=== PATIENT | female | born 1940 | race Caucasian/White ===

== ENCOUNTER 2016-07-26 15:36 | Inpatient (IN) | payer OTHER ==
[2016-07-26] MEDS ORDERED: ONDANSETRON HCL 4 MG/2 ML VIAL IV ONE (16:04)
[2016-07-26] MEDS ORDERED: NS 2,000 ML IV ONE (16:04)
[2016-07-26] MEDS ORDERED: ACETAMINOPHEN 325 MG/TAB TABLET PO ONE (16:13)
[2016-07-26 16:18] LABS: LEUKOCYTES/URINE NEG (NEGATIVE); NITRITE/URINE NEG (NEGATIVE); URINE OCCULT BLOOD NEG (NEG/TRACE)
--- NOTE | 2016-07-26 16:21 | EDPRACDOC ---
- History of Present Illness HPI: MD NOTE SEEN AND EXAMINED; OLD RECORDS REVIEWED. LABS REVIEWED. WILL CONTACT HOSP FOR ADMISSION <Fracisco Hernández - Last Filed: 07/26/16 18:50> - General Information Information Source: Patient, Family Mode Of Arrival: Car - History of Present Illness Onset: 4 days HPI: PT STATES SHE WAS JUST RECENTLY ADMITTED TO THIS FACILITY DUE TO ABDOMINAL PAIN , NAUSEA, VOMITING AND DIARRHEA. STATES SHE HAD ABOUT ONE GOOD DAY AT HOME AND THEN BEGAN HAVING ALL OF THE SAME ISSUES AGAIN. PT STATES SHE IS HAVING MULTIPLE EPISODES OF DIARRHEA WHICH IS DESCRIBED MUCOUS. Symptoms Started: Reports: Gradually Symptoms Description: Constant Weakness: Bilateral: Generalized Symptoms: Reports: Weak Symptom Severity: Reports: Unable to performs ADL's Associated signs and symptoms:: Reports: Diarrhea, Nausea, Vomiting <Allison Chacon - Last Filed: 07/26/16 19:11> - General Information Chief Complaint: Generalized Weakness Stated Complaint: N/V Time Seen by Provider: 07/26/16 15:56 Home Medications: Home Medications Aspirin 325 mg PO DAILY 11/12/15 Buspirone HCl [Buspar] 10 mg PO BID 11/12/15 Folic Acid 1 mg PO DAILY 11/12/15 Trimethoprim 100 mg PO DAILY 11/12/15 Baclofen 5 mg PO TID PRN 07/16/16 CYANOCOBALAMIN (Vitamin B-12) [Vitamin B-12 (cyanocobalamin)] 1,000 mcg IM QMONTH 07/16/16 Docusate Sodium [Colace] 100 mg PO BID 07/16/16 Fluticasone Propionate [Flonase] 1 spray DIANA DAILY PRN 07/16/16 Hydrocodone Bit/Acetaminophen [[place] 5-325 Tablet] 1 tab PO Q6H PRN MDD 3000MG OF TYLENOL 07/16/16 Loperamide HCl [Loperamide] 2 mg PO Q4H PRN 07/16/16 Mirtazapine [Remeron] 7.5 mg PO HS 07/16/16 Multivitamin [Multiple Vitamins] 1 tab PO DAILY 07/16/16 Ondansetron [Zofran Odt] 4 - 8 mg PO BID PRN 07/16/16 Ranitidine [Zantac] 150 mg PO DAILY 07/16/16 Metoprolol Succinate (XL) [Toprol Xl] 100 mg PO DAILY #90 tablet 07/21/16 Probiotic Blend [Ivonne Q] 1 tab PO BIDLS #60 tablet 07/21/16 Azithromycin [Zithromax] 250 mg PO DIR 07/26/16 Cholecalciferol (Vitamin D3) [Vitamin D] 50,000 unit PO QMONTH 07/26/16 Losartan Potassium [Cozaar] 50 mg PO DAILY 07/26/16 Promethazine HCl [Phenergan] 12.5 mg PO Q6-8H PRN 07/26/16 See Comments 0 mg PO .SEE COMMENTS 07/26/16 Allergies/Adverse Reactions: Allergies Allergy/AdvReac Type Severity Reaction Status Date / Time diphenhydramine HCl Allergy Intermediate Unknown/See Verified 07/16/16 05:23 [From Benadryl] Comments pregabalin [From Lyrica] Allergy Mild Unknown/See Verified 07/16/16 05:23 Comments propoxyphene napsylate Allergy Mild Unknown/See Verified 07/16/16 05:23 [From Darvocet-N 100] Comments atorvastatin Allergy Unknown Verified 07/16/16 13:26 ED Past Medical History - History Reviewed Yes Nurses notes reviewed and agree except as marked - Patient Medical History Neurological History: Reports: Cerebrovascular Accident (R sided hemiparesis/ plegia May 2015) Cardiac History: Reports: Hypertension Respiratory History: Reports: Asthma (long time ago r/t allergies) GI/ History: Reports: Urinary Tract Infection (chronic), Ulcer (PUD), Diverticulosis Musculoskeletal History: Reports: Arthritis (all over) Psychological History: Reports: Anxiety. Denies: Depression, Substance Use Disorder Surgical History: Reports: Cholecystectomy, Hysterectomy - Family Medical History Reports: Cardiac Disorders (mother) - Social Medical History Smoking Status: Former smoker Social History: Denies: Substance Use Disorder <Allison Chacon W - Last Filed: 07/26/16 19:11> EDM Review of Systems - Review of Systems ROS Negative Except as Marked: Yes All systems reviewed and were negative except as marked <Allison Chacon W - Last Filed: 07/26/16 19:11> - Physical Exam Last recorded Vital Signs: Last Vital Signs Temp 101.2 F H 07/26/16 17:57 Pulse 112 07/26/16 17:57 Resp 18 07/26/16 17:57 BP 122/56 L 07/26/16 17:57 Pulse Ox 95 07/26/16 17:57 Oxygen Pulse Oxygen Saturation 95 O2 Device Room Air Oxygen Flow Rate Fraction of Inspired Oxygen ( FIO2) <Fracisco Hernández - Last Filed: 07/26/16 18:50> - Physical Exam Constitutional: Alert Oriented to: Time, Person, Place Last recorded Vital Signs: Last Vital Signs Temp 103.3 F H 07/26/16 15:40 Pulse 120 H 07/26/16 15:40 Resp 20 07/26/16 15:40 BP 119/64 07/26/16 15:40 Pulse Ox 96 07/26/16 15:40 Oxygen Pulse Oxygen Saturation 96 O2 Device Room Air Oxygen Flow Rate Fraction of Inspired Oxygen ( FIO2) - HEENT Head: Normal ( normocephalic) Eye Exam: Pale Conjunctiva Oropharynx: Membranes Dry Tympanic Membrane: Normal Nose: No Symptoms Reported (septum midline) Neck: Normal (FROM, trachea at midline) - Respiratory/Cardiovascular Respiratory: Normal - CTA Cardiovascular: Tachycardia - GI Auscultation: Normal (NABS) Palpation: Normal (Soft,No rebound or guarding, non distended) Tenderness: Diffuse, Moderate Murillo's Sign: Negative Rectal Exam: Deferred - Musculoskeletal Back: Normal (Non-Tender) Extremities: Normal (Normal tone, Pulses 2+ No cyanosis or edema, FROM) - Integumentary Skin: Normal, Warm, Dry Lymphatics: Normal (no adenopathy) - Neurologic Memory Impaired: Normal Motor Function: Normal (Normal tone, Pulses 2+ No cyanosis or edema, FROM) Cranial Nerve: Normal (CN II-X11 intact sensation, strength 5/5) Cerebellar: Normal Mood Description: Normal Perception: Normal <Allison Chacon - Last Filed: 07/26/16 19:11> NIH Stroke Scale Initial Evaluation Level of Consciousness: Alert LOC- Question: Answers Both Correctly LOC Commands: Both Task Correctly Best Gaze: Normal Visual: No Visual Loss Facial Palsy: Normal Movement Motor Arm LEFT: No Drift Motor Arm RIGHT: No Drift Motor Leg LEFT: No Drift Motor Leg RIGHT: No Drift Limb Ataxia: Absent Sensory: Normal Best Language: No Aphasia Dysarthria: Normal Extinction and Inattention: No Abnormality (Neglect) Score: 0out of42 <Allison Chacon - Last Filed: 07/26/16 19:11> - Neurologic Orientation: Time, Person, Place Speech: Fluent, Clear Coginitive: Normal, Follows Commands Affect: Normal, Calm Thought: Coherent Perception: Normal <Allison Chacon W - Last Filed: 07/26/16 19:11> - Results 07/26/16 15:53 07/26/16 15:53 WBC 19.0 xk/uL (3.8-10.8) H 07/26/16 15:53 RBC 3.91 xM/uL (4.20-5.40) L 07/26/16 15:53 Hgb 11.7 g/dL (12.0-16.0) L 07/26/16 15:53 Hct 35.2 % (36-47) L 07/26/16 15:53 MCV 90 fL (81-99) 07/26/16 15:53 MCH 30.0 pg (27-32) 07/26/16 15:53 MCHC 33.3 g/dl (33-36) 07/26/16 15:53 RDW 14.0 % (11.5-14.5) 07/26/16 15:53 Plt Count 540 xk/uL (130-400) H 07/26/16 15:53 MPV 8.0 fL (7.4-10.4) 07/26/16 15:53 Neut % (Auto) Cancelled 07/26/16 15:53 Lymph % (Auto) Cancelled 07/26/16 15:53 [place] % (Auto) Cancelled 07/26/16 15:53 Eos % (Auto) Cancelled 07/26/16 15:53 Baso % (Auto) Cancelled 07/26/16 15:53 Absolute Neuts (auto) Cancelled 07/26/16 15:53 Absolute Lymphs (auto) Cancelled 07/26/16 15:53 Seg Neuts % (Manual) 64 % (45-76) 07/26/16 15:53 Band Neutrophils % 7 % (0-5) H 07/26/16 15:53 Lymphocytes % (Manual) 15 % (17-44) L 07/26/16 15:53 Monocytes % (Manual) 13 % (0-10) H 07/26/16 15:53 Myelocytes % 1 % (0) H 07/26/16 15:53 Absolute Neutrophils 13.49 xk/uL (1.7-8.2) H 07/26/16 15:53 Absolute Lymphocytes 2.85 xk/uL (0.65-4.75) 07/26/16 15:53 Toxic Granulation 1+ 07/26/16 15:53 Platelet Estimate Inc (NORMAL) 07/26/16 15:53 RBC Morphology Norm 07/26/16 15:53 PT 11.2 SEC (9.2-11.2) 07/26/16 15:53 INR 1.1 07/26/16 15:53 APTT 26.0 SEC (22-35) 07/26/16 15:53 Puncture Site Right radial 07/26/16 17:00 pH 7.460 pH UNITS (7.35-7.45) H 07/26/16 17:00 pCO2 27.0 mmHg (35-45) L 07/26/16 17:00 pO2 83.0 mmHg (80-100) 07/26/16 17:00 HCO3 19.2 MMOL/L (22-26) L 07/26/16 17:00 Total CO2 20.0 MMOL/L (23-27) L 07/26/16 17:00 Base Excess -3.2 (+/- 2) L 07/26/16 17:00 FiO2 % .21 07/26/16 17:00 Specimen Drawn By Sy 07/26/16 17:00 Sodium 139 mEq/L (137-146) 07/26/16 15:53 Potassium 3.0 mEq/L (3.5-5.1) L 07/26/16 15:53 Chloride 105 mEq/L (98-107) 07/26/16 15:53 Carbon Dioxide 20 mMOL/L (22-33) L 07/26/16 15:53 Anion Gap 17 mEq/L (8-16) H 07/26/16 15:53 BUN 31 MG/DL (7-17) H 07/26/16 15:53 Creatinine 1.10 MG/DL (0.52-1.04) H 07/26/16 15:53 Estimated GFR (MDRD) 48 mL/min (>=60) L 07/26/16 15:53 Glucose 107 MG/DL (70-99) H 07/26/16 15:53 Calculated Osmolality 275 MOs/Kg (270-290) 07/26/16 15:53 Lactic Acid 1.7 mEq/L (0.7-2.1) 07/26/16 15:53 Calcium 8.4 MG/DL (8.4-10.2) 07/26/16 15:53 Corrected Calcium 8.9 MG/DL (8.4-10.2) 07/26/16 15:53 Total Bilirubin 0.4 MG/DL (0.2-1.3) 07/26/16 15:53 AST 35 IU/L (14-36) 07/26/16 15:53 ALT 38 IU/L (9-52) 07/26/16 15:53 Alkaline Phosphatase 146 IU/L (55-165) 07/26/16 15:53 Creatine Kinase 20 IU/L (30-134) L 07/26/16 15:53 Troponin I 0.01 ng/mL (<.04) 07/26/16 15:53 Total Protein 7.0 G/DL (6.3-8.2) 07/26/16 15:53 Albumin 3.5 G/DL (3.5-5.0) 07/26/16 15:53 Lipase 148 U/L (23-300) 07/26/16 15:53 Urine Color Yellow 07/26/16 15:50 Urine Clarity Clear 07/26/16 15:50 Urine pH 6.0 (5.0-8.0) 07/26/16 15:50 Ur Specific [place] 1.015 (1.003-1.035) 07/26/16 15:50 Urine Protein 1+ (NEG/TRACE) H 07/26/16 15:50 Urine Glucose (UA) Neg (NEGATIVE) 07/26/16 15:50 Urine Ketones Neg (NEGATIVE) 07/26/16 15:50 Urine Occult Blood Neg (NEG/TRACE) 07/26/16 15:50 Urine Nitrite Neg (NEGATIVE) 07/26/16 15:50 Urine Bilirubin Neg (NEGATIVE) 07/26/16 15:50 Urine Urobilinogen <2.0 MG/DL (0-1) 07/26/16 15:50 Ur Leukocyte Esterase Neg (NEGATIVE) 07/26/16 15:50 Urine RBC 2-5 (0-5) 07/26/16 15:50 Urine WBC 2-5 (0-5) 07/26/16 15:50 Ur Epithelial Cells Occ 07/26/16 15:50 Urine Bacteria Few (NEG/FEW) 07/26/16 15:50 Urine Mucus Occ (NEG/OCC) 07/26/16 15:50 Urine Yeast Mod (NONE) H 07/26/16 15:50 Lab Results 07/26/16 07/26/16 07/26/16 17:00 15:53 15:53 WBC 19.0 H RBC 3.91 L Hgb 11.7 L Hct 35.2 L MCV 90 MCH 30.0 MCHC 33.3 RDW 14.0 Plt Count 540 H MPV 8.0 Neut % (Auto) Cancelled Lymph % (Auto) Cancelled [place] % (Auto) Cancelled Eos % (Auto) Cancelled Baso % (Auto) Cancelled Absolute Neuts (auto) Cancelled Absolute Lymphs (auto) Cancelled Seg Neuts % (Manual) 64 Band Neutrophils % 7 H Lymphocytes % (Manual) 15 L Monocytes % (Manual) 13 H Myelocytes % 1 H Absolute Neutrophils 13.49 H Absolute Lymphocytes 2.85 Toxic Granulation 1+ Platelet Estimate Inc RBC Morphology Norm PT 11.2 INR 1.1 APTT 26.0 Puncture Site Right radial pH 7.460 H pCO2 27.0 L pO2 83.0 HCO3 19.2 L Total CO2 20.0 L Base Excess -3.2 L FiO2 % .21 Specimen Drawn By Sy Sodium Potassium Chloride Carbon Dioxide Anion Gap BUN Creatinine Estimated GFR (MDRD) Glucose Calculated Osmolality Lactic Acid Calcium Corrected Calcium Total Bilirubin AST ALT Alkaline Phosphatase Creatine Kinase Troponin I Total Protein Albumin Lipase Urine Color Urine Clarity Urine pH Ur Specific [place] Urine Protein Urine Glucose (UA) Urine Ketones Urine Occult Blood Urine Nitrite Urine Bilirubin Urine Urobilinogen Ur Leukocyte Esterase Urine RBC Urine WBC Ur Epithelial Cells Urine Bacteria Urine Mucus Urine Yeast 07/26/16 07/26/16 07/26/16 15:53 15:53 15:50 WBC RBC Hgb Hct MCV MCH MCHC RDW Plt Count MPV Neut % (Auto) Lymph % (Auto) [place] % (Auto) Eos % (Auto) Baso % (Auto) Absolute Neuts (auto) Absolute Lymphs (auto) Seg Neuts % (Manual) Band Neutrophils % Lymphocytes % (Manual) Monocytes % (Manual) Myelocytes % Absolute Neutrophils Absolute Lymphocytes Toxic Granulation Platelet Estimate RBC Morphology PT INR APTT Puncture Site pH pCO2 pO2 HCO3 Total CO2 Base Excess FiO2 % Specimen Drawn By Sodium 139 Potassium 3.0 L Chloride 105 Carbon Dioxide 20 L Anion Gap 17 H BUN 31 H Creatinine 1.10 H Estimated GFR (MDRD) 48 L Glucose 107 H Calculated Osmolality 275 Lactic Acid 1.7 Calcium 8.4 Corrected Calcium 8.9 Total Bilirubin 0.4 AST 35 ALT 38 Alkaline Phosphatase 146 Creatine Kinase 20 L Troponin I 0.01 Total Protein 7.0 Albumin 3.5 Lipase 148 Urine Color Yellow Urine Clarity Clear Urine pH 6.0 Ur Specific [place] 1.015 Urine Protein 1+ H Urine Glucose (UA) Neg Urine Ketones Neg Urine Occult Blood Neg Urine Nitrite Neg Urine Bilirubin Neg Urine Urobilinogen <2.0 Ur Leukocyte Esterase Neg Urine RBC 2-5 Urine WBC 2-5 Ur Epithelial Cells Occ Urine Bacteria Few Urine Mucus Occ Urine Yeast Mod H <Fracisco Hernández - Last Filed: 07/26/16 18:50> - Differential Diagnosis Dehydration, Electrolyte disorder, Other - Results 07/26/16 15:53 07/26/16 15:53 - EKG EKG #1 EKG Time: 16:16 -: Yes EKG interpreted by me Rate: bpm: 115 [place]: Normal Rhythm: ST Block: None Hypertrophy: None ST: Nonsp <Allison Chacon - Last Filed: 07/26/16 19:11> Decision to Admit Time: 19:10 (IKRAM) Decision to admit date: 07/26/16 Decision to admit: from ED <Fracisco Hernández - Last Filed: 07/26/16 18:50> - Departure Disposition: Admit IP To This Hospital Education/Counseling Given To: Patient Education/Counseling Given Regarding: Diagnosis, Treatment, Prognosis, Follow Up <Allison Chacon - Last Filed: 07/26/16 19:11> - Departure Condition: Stable Final Diagnosis: Dehydration, PRE RENAL AZOTEMIA Nausea & vomiting Qualifiers: Vomiting type: unspecified Vomiting Intractability: unspecified Qualified Code( s): R11.2 - Nausea with vomiting, unspecified Diarrhea Qualifiers: Diarrhea type: unspecified type Qualified Code(s): R19.7 - Diarrhea, unspecified Instructions: Weakness (General), Acute Nausea and Vomiting (ED), Acute Diarrhea (ED) Referrals: Antonia Ramirez, ACCESS LIAISON [Primary Care Provider] - One Week
[2016-07-26 16:30] LABS: PT-INR 1.1
[2016-07-26 16:40] LABS: CALC CORRECTED 8.9 MG/DL (8.4-10.2); CALCIUM 8.4 MG/DL (8.4-10.2); CREATININE 1.1 MG/DL (0.52-1.04)
[2016-07-26] MEDS ORDERED: Pharmacy Review for Metformin - IV Contrast Given SCH (17:00)
[2016-07-26] MEDS: KCL 20 mEq/100 ml Premix Run 20 MEQ/100 ML RTU IV SCH ×3 (17:03→19:26)
[2016-07-26 17:07] LABS: ABG Draw Site Right Radial; ALLEN'S TEST PASS; BEb -3.2 (+/- 2)
[2016-07-26 17:08] LABS: SEG NEUTROPHIL 64 % (45-76); TOTAL CELL COUNT 100
--- NOTE | 2016-07-26 17:10 | DIRPT ---
CLINICAL DATA: Sepsis. Stroke 16 months ago. EXAM: PORTABLE CHEST 1 VIEW COMPARISON: 05/01/2013; report from 03/07/2015 FINDINGS: Atherosclerotic aortic arch with tortuosity of the thoracic aorta. Clips project in the vicinity of the distal esophagus. Mild dextroconvex thoracic scoliosis. Heart size within normal limits for projection. The lungs appear clear. IMPRESSION: 1. No airspace opacity to suggest pneumonia. 2. Atherosclerotic aortic arch. Electronically Signed By: Oswaldo Moreland M.D. On: 07/26/2016 17:07
[2016-07-26] MEDS ORDERED: IBUPROFEN 800 MG TAB PO ONE (18:01)
[2016-07-26] MEDS ORDERED: HYDROmorphone 1 MG INJECTION IV ONE (18:06)
[2016-07-26] MEDS ORDERED: HYDROmorphone 1 MG INJECTION ONE (18:07)
--- NOTE | 2016-07-26 18:35 | DIRPT ---
CLINICAL DATA: Acute middle abdominal pain. Nausea, vomiting, diarrhea. EXAM: CT ABDOMEN AND PELVIS WITH CONTRAST TECHNIQUE: Multidetector CT imaging of the abdomen and pelvis was performed using the standard protocol following bolus administration of intravenous contrast. CONTRAST: 80 mL of Isovue 370 intravenously. COMPARISON: None. FINDINGS: Severe multilevel degenerative disc disease is noted in the lower lumbar spine. Visualized lung bases are unremarkable. Stable mild intrahepatic biliary dilatation is noted most consistent with patient's post cholecystectomy status. The pancreas and spleen appear normal. Adrenal glands and kidneys are unremarkable. No hydronephrosis or renal obstruction is noted. There is no evidence of bowel obstruction. Wall thickening of the sigmoid colon and rectum is noted concerning for infectious or inflammatory colitis. Mild sigmoid diverticulosis is noted. No abnormal fluid collection is noted. Atherosclerosis of abdominal aorta is noted without aneurysm formation. No significant adenopathy is noted. Urinary bladder appears normal. Patient is status post hysterectomy. Ovaries are not well visualized. IMPRESSION: Wall thickening of the sigmoid colon and rectum is noted concerning for infectious or inflammatory colitis. Mild sigmoid diverticulosis is noted. Atherosclerosis of abdominal aorta is noted without aneurysm formation. Electronically Signed By: Edwar Vance Jr, M.D. On: 07/26/2016 18:32
[2016-07-26] MEDS ORDERED: Levofloxacin 750 mg/150 ml D5W 750 MG/150 ML RTU IV ONE (18:52)
[2016-07-26] MEDS ORDERED: ONDANSETRON HCL 4 MG/2 ML VIAL IV PRN (19:29)
[2016-07-26] MEDS ORDERED: ACETAMINOPHEN 325 MG/TAB TABLET PO PRN (19:29)
[2016-07-26] MEDS ORDERED: BACLOFEN 10 MG TAB PO PRN (19:30)
[2016-07-26] MEDS ORDERED: LOPERAMIDE 2 MG CAP PO PRN (19:30)
[2016-07-26] MEDS ORDERED: FLUTICASONE PROPIONATE 16 GM BOT NAS PRN (19:30)
[2016-07-26] MEDS ORDERED: Albuterol/Ipratropium Neb 3 ML NEB NEB PRN (19:31)
[2016-07-26] MEDS ORDERED: POTASSIUM CHLORIDE 20 MEQ/15 ML ORAL SOLN PO ONE (19:58)
[2016-07-26] MEDS ORDERED: CYANOCOBALAMIN 1000 MCG/ML VIAL IM SCH (20:00)
--- NOTE | 2016-07-26 20:00 | HISTPHYS ---
- Chief Complaint Nausea, vomiting, diarrhea - History of Present Illness 75-year-old female with recent hospitalization for diverticulitis and pancreatitis who is being readmitted to the hospital tonight due to recurrent nausea, vomiting and diarrhea. She went home on the , had a couple of good days, but her nausea and vomiting returned. She also been having watery diarrhea without blood. She completed a course of antibiotics, and was not discharged home on any antibiotics. She says that she was still having diarrhea when she was discharged home will was slightly nauseated but not vomiting. She was tolerating a liquid diet at the time of discharge from the hospital last time. In any case, she is now not tolerating any p.o., though her daughter later states that she ate a piece of toast and some eggs this morning and was able to keep it down without vomiting. Otherwise, she has been retching a lot and vomiting clear stuff and bile. She is also having diarrhea, pretty much every 2 hours during the day while she was awake. There is no blood , it is mostly mucousy. No fevers at home, but she was febrile here in the emergency department. She has also been relatively hypotensive here in the emergency department. Given the current her symptoms, and the continued vomiting and diarrhea, the hospitalist group was consulted for inpatient admission and further treatment. - Medical History Cardiac History: Reports: Hypertension Respiratory History: Reports: Asthma (long time ago r/t allergies) GI/ History: Reports: Urinary Tract Infection (chronic), Ulcer (PUD), Diverticulosis Musculoskeletal History: Reports: Arthritis (all over) Neurological History: Reports: Cerebrovascular Accident (R sided hemiparesis/ plegia May 2015) Psychological History: Reports: Anxiety. Denies: Depression, Substance Use Disorder - Surgical History Reports: Cholecystectomy, Hysterectomy - Medictions/Allergies Allergies diphenhydramine HCl [From Benadryl] Allergy (Intermediate, Verified 07/16/16 05: 23) Unknown/See Comments SOB pregabalin [From Lyrica] Allergy (Mild, Verified 07/16/16 05:23) Unknown/See Comments SWELLING propoxyphene napsylate [From Darvocet-N 100] Allergy (Mild, Verified 07/16/16 05 :23) Unknown/See Comments SWELLING/GENERAL atorvastatin Allergy (Verified 07/16/16 13:26) Unknown Home Medications Aspirin 325 mg PO DAILY 11/12/15 Buspirone HCl [Buspar] 10 mg PO BID 11/12/15 Folic Acid 1 mg PO DAILY 11/12/15 Trimethoprim 100 mg PO DAILY 11/12/15 Baclofen 5 mg PO TID PRN 07/16/16 CYANOCOBALAMIN (Vitamin B-12) [Vitamin B-12 (cyanocobalamin)] 1,000 mcg IM QMONTH 07/16/16 Docusate Sodium [Colace] 100 mg PO BID 07/16/16 Fluticasone Propionate [Flonase] 1 spray DIANA DAILY PRN 07/16/16 Hydrocodone Bit/Acetaminophen [[place] 5-325 Tablet] 1 tab PO Q6H PRN MDD 3000MG OF TYLENOL 07/16/16 Loperamide HCl [Loperamide] 2 mg PO Q4H PRN 07/16/16 Mirtazapine [Remeron] 7.5 mg PO HS 07/16/16 Multivitamin [Multiple Vitamins] 1 tab PO DAILY 07/16/16 Ondansetron [Zofran Odt] 4 - 8 mg PO BID PRN 07/16/16 Ranitidine [Zantac] 150 mg PO DAILY 07/16/16 Metoprolol Succinate (XL) [Toprol Xl] 100 mg PO DAILY #90 tablet 07/21/16 Probiotic Blend [Ivonne Q] 1 tab PO BIDLS #60 tablet 07/21/16 Azithromycin [Zithromax] 250 mg PO DIR 07/26/16 Cholecalciferol (Vitamin D3) [Vitamin D] 50,000 unit PO QMONTH 07/26/16 Losartan Potassium [Cozaar] 50 mg PO DAILY 07/26/16 Promethazine HCl [Phenergan] 12.5 mg PO Q6-8H PRN 07/26/16 See Comments 0 mg PO .SEE COMMENTS 07/26/16 - Family History Reports: Cardiac Disorders (mother) - Social History Smoking Status: Former smoker Social History: Denies: Substance Use Disorder - Review of Systems Constitutional: No Symptoms Reported (No fever, chills, wt loss/gain, fatigue) Eyes: No Symptoms Reported (No blurry vision, visual changes) Respiratory: No Symptoms Reported (No cough,wheezing or shortness of breath) Cardiovascular: No Symptoms Reported (No Chest pain, palpitations) Gastrointestinal: No Symptoms Reported (No abdominal pain, nausea, vomiting, diarrhea or constipation) Genitourinary: No Symptoms Reported (No dysuria) Musculoskeletal:: No Symptoms Reported (No headache, dizzness, seizures or focal weakness) Integumentary: No Symptoms Reported (No rashes or lesions) Hematologic: No Symptoms Reported (No bleeding or easy bruising) Endocrine: No Symptoms Reported (No polyuria) - Physical Exam Vital Signs: Initial Vitals Temperature 103.3 F H 07/26/16 15:40 Pulse Rate 120 H 07/26/16 15:40 Respiratory Rate 20 07/26/16 15:40 Blood Pressure 119/64 07/26/16 15:40 Pulse Oxygen Saturation 96 07/26/16 15:40 Constitutional: Distress, Somnolent Oriented to: Time, Person, Place Exam: Not acutely uncomfortable, very tired and dehydrated appearing. - HEENT Head: Normal (normocephalic,atraumatic, trachea midline) Eye: Normal (EOMI, Sclera white) Oropharynx: Normal (moist) Nose: No Symptoms Reported (without discharge or bleeding) Mucous membranes are dry. Respiratory: Normal - CTA Cardiovascular: Normal - GI GI Addtional Findings: Abdomen is soft, but tender especially in the right upper quadrant. Hyperactive bowel sounds. - Musculoskeletal Extremities: Normal (normal tone, no cyanosis or edema) - Focused CV Perfusion Exam Vital Signs: Last Vital Signs Temp 99.2 F 07/26/16 19:15 Pulse 112 07/26/16 19:31 Resp 20 07/26/16 19:31 BP 129/56 L 07/26/16 19:31 Pulse Ox 94 07/26/16 19:31 - Lab Results Laboratory Tests 07/26/16 07/26/16 07/26/16 15:53 15:53 17:00 WBC 19.0 H Hgb 11.7 L pH 7.460 H pCO2 27.0 L pO2 83.0 Potassium 3.0 L BUN 31 H Creatinine 1.10 H Troponin I 0.01 Lipase 148 07/26/16 18:53 WBC Hgb pH pCO2 pO2 Potassium BUN Creatinine Troponin I 0.02 Lipase - Diagnostic Findings CT of the abdomen pelvis. Performed in the emergency department tonight, results reviewed by me. Evidence of colitis and sigmoiditis. No diverticulitis , abscess or free air. - Assessment (1) Sepsis A41.9 - SEPSIS, UNSPECIFIED ORGANISM Acute Meeting criteria with leukocytosis, tachycardia, fever. Source is GI with colitis. Likely infectious colitis. Lactate is below 2. She was given fluid bolus in the emergency department, will continue IV fluids. Does not need to be treated per severe sepsis protocol. (2) Colitis K52.9 - NONINFECTIVE GASTROENTERITIS AND COLITIS, UNSPECIFIED Acute Treat empirically with IV Zosyn. Was treated previously with Levaquin and Flagyl. When she called stable physician earlier this week, she was given a prescription for azithromycin which she has taken 2 doses of. Blood cultures have been obtained and are pending. I have also ordered stool WBCs and culture. C diff is also pending, given continued diarrhea and significant leukocytosis, will start treat empirically with p.o. Flagyl. Will also discontinue loperamide until C diff is proven negative. (3) Dehydration E86.0 - DEHYDRATION Acute Dehydrated due to nausea vomiting diarrhea. Also has acute kidney injury. Treating with gentle IV hydration. (4) Diarrhea R19.7 - DIARRHEA, UNSPECIFIED Acute Qualifiers: Diarrhea type: unspecified type Qualified Code(s): R19.7 - Diarrhea, unspecified Due to colitis, treating as above. Checking for C diff as mentioned above. Starting to empirically treat for it with p.o. Flagyl. (5) Nausea & vomiting R11.2 - NAUSEA WITH VOMITING, UNSPECIFIED Acute Qualifiers: Vomiting type: unspecified Vomiting Intractability: unspecified Qualified Code(s): R11.2 - Nausea with vomiting, unspecified Zofran p.r.n.. (6) Hypertension I10 - ESSENTIAL (PRIMARY) HYPERTENSION Acute Qualifiers: Hypertension type: essential hypertension Qualified Code(s): I10 - Essential (primary) hypertension She was started on new blood pressure medication during her last hospital stay, but is currently relatively hypotensive. As such, will hold some of her antihypertensive until her blood pressures improved. 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 (8) Abdominal pain R10.9 - UNSPECIFIED ABDOMINAL PAIN Resolved Qualifiers: Abdominal location: epigastric Qualified Code(s): R10.13 - Epigastric pain (9) Pancreatitis K85.90 - ACUTE PANCREATITIS WITHOUT NECROSIS OR INFECTION, UNSP Ruled-out Qualifiers: Chronicity: acute Pancreatitis type: unspecified pancreatitis type Acute pancreatitis complication: unspecified Qualified Code(s): K85.90 - Acute pancreatitis without necrosis or infection, unspecified Patient's amylase and lipase were likely elevated due to her vomiting on prior admission. Normal today. (10) ORESTES (acute kidney injury) N17.9 - ACUTE KIDNEY FAILURE, UNSPECIFIED Acute Due to significant dehydration from nausea vomiting and diarrhea. Gentle IV fluids today, recheck renal function in the morning. Total Time: 65
[2016-07-26] MEDS: NS 1,000 ML IV SCH (22:02)
[2016-07-26] MEDS: PIPERACILLIN AND TAZOBACTAM 3.375 GM in D5W 100 ML IV SCH (22:06)
[2016-07-26] MEDS: ENOXAPARIN 40 MG/0.4 ML PFS SQ SCH (22:06)
[2016-07-26] MEDS: METRONIDAZOLE 500 MG TAB PO SCH (22:08)
[2016-07-26] MEDS: MIRTAZAPINE 15 MG TAB PO SCH (22:08)
[2016-07-26] MEDS: BUSPIRONE 10 MG TAB PO SCH (22:08)
[2016-07-26] MEDS: OXYCODONE HCL 5 MG TABLET PO PRN (22:15)
[2016-07-26] MEDS ORDERED: Vaccine Screening Complete SCH (23:00)
[2016-07-27] MEDS: PIPERACILLIN AND TAZOBACTAM 3.375 GM in D5W 100 ML IV SCH (04:35)
[2016-07-27 05:38] LABS: BLOOD UREA NITROGEN 24 MG/DL (7-17); CALCIUM 7.8 MG/DL (8.4-10.2); CALCULATED OSMOLALITY 274 MOs/Kg (270-290); CHLORIDE 110 mEq/L (98-107); GLUCOSE 81 MG/DL (70-99); SODIUM LEVEL 141 mEq/L (137-146)
[2016-07-27] MEDS: METRONIDAZOLE 500 MG TAB PO SCH ×3 (06:19→20:14)
[2016-07-27] MEDS: ASPIRIN 325 MG TAB PO SCH (08:59)
[2016-07-27] MEDS: RANITIDINE 150 MG TAB PO SCH (09:00)
[2016-07-27] MEDS: BUSPIRONE 10 MG TAB PO SCH ×2 (09:00→20:13)
[2016-07-27] MEDS ORDERED: Non-Formulary Medication ITEM (Multivitamin [Multiple Vitamins] 1 TAB) PO SCH (09:00)
[2016-07-27] MEDS: NS 1,000 ML IV SCH ×2 (09:06→20:13)
[2016-07-27] MEDS: METOPROLOL (TOPROL-XL) 100 MG TAB PO SCH (10:14)
[2016-07-27] MEDS: OXYCODONE HCL 5 MG TABLET PO PRN ×2 (11:15→16:48)
[2016-07-27] MEDS: FOLIC ACID 1 MG TAB PO SCH (11:17)
[2016-07-27] MEDS: VITAMINS, MULTIPLE CAP PO SCH (11:17)
[2016-07-27] MEDS: PROBIOTIC BLEND TAB PO SCH ×2 (11:17→16:49)
[2016-07-27] MEDS: ENOXAPARIN 40 MG/0.4 ML PFS SQ SCH (16:49)
--- NOTE | 2016-07-27 17:49 | GENMEDPROG ---
Chief Complaint: Still having diarrhea Subjective Note: 75-year-old female recently discharged from our hospital after a treatment for colitis presents with recurrent colitis but this time she has C diff colitis. Notes Reviewed: Yes Events from last night noted and discussed with Clinical Staff Current Medication List: Reviewed Currently: Reports: Diarrhea, Nausea and Vomiting, Abdominal Pain, Fever/ Chills. Denies: Ambulating DVT Prophylaxis: Yes - Physical Examination Vital Signs and I&O: Last Vital Signs Temp 98.3 F 07/27/16 17:08 Pulse 109 07/27/16 17:08 Resp 18 07/27/16 17:08 BP 124/55 L 07/27/16 17:08 Pulse Ox 97 07/27/16 17:08 Oxygen Pulse Oxygen Saturation 97 O2 Device Room Air Oxygen Flow Rate Fraction of Inspired Oxygen ( FIO2) Intake & Output 07/24/16 07/25/16 07/26/16 07/27/16 23:59 23:59 23:59 23:59 Intake Total 1150 1245 Balance 1150 1245 Patient's weight 51.165 kg 51.573 kg General: Alert, Oriented x3, No acute distress, Well appearing, Well nourished HEENT: Normal (Normocephalic, atraumatic;EOMI.Sclera white, Nares patent, without discharge or bleeding. No oropharyngeal lesions or erythema. Mucous membranes are dry.) Respiratory: Normal - CTA Cardiovascular: Regular rate and rhythm (No bradycardia or tachycardia), Normal S1, No Gallops,Rubs/Murmurs, Normal S2, Good Pedal Pulses (DP pulses 2+ bilaterally) GI: Tenderness (Diffusely). negative: Rebound, Guarding Extremities/Musculoskeletal: Normal pulses (DP pulses 2+ bilaterally) Skin: Warm,Dry and Intact, No rashes, No significant lesion Neurological: Strength at 5/5 X4 ext (Motor 5/5 throughout.), Normal tone, Cranial nerves 3-12 NL ( 2-12 grossly intact.) Psych/Mental Status: Appropriate, Normal Affect Lab/DI/Studies Reviewed: Microbiology 07/27/16 03:52 Stool Stool Consistency (TIMMY) - Final 07/27/16 03:52 Stool Clostridium difficile 027 (PCR) - Final * POSITIVE * This test may remain positive for several weeks even after the resolution of symptoms and completion of treatment. Therefore, repeat testing should NOT be requested within 7 days of the initial positive specimen, and then should be performed only in the setting of new onset diarrheal illness. Repeat assays should NOT be done to test for resolution of C. difficile infection. (C-sam Genexpert C. difficile/Epi by PCR: Performance characteristics have not been established for patients <2 years of age - per sld teacher limitations.) PRESUMPTIVE POSITIVE (For in vitro diagnostic use only. 027-NAP1-BI results are NOT intended to guide treatment of C. difficile infections. (Infection Control Hosp Epidemiol 2010;31:431-455) ) Abnormal Lab Results 07/27/16 07/27/16 04:50 04:50 WBC 21.1 H RBC 3.18 L Hgb 9.7 L D Hct 28.6 L Plt Count 486 H Chloride 110 H Carbon Dioxide 20 L BUN 24 H Estimated GFR (MDRD) 54 L Calcium 7.8 L - Assessment (1) C. difficile colitis Acute A04.7 - ENTEROCOLITIS DUE TO CLOSTRIDIUM DIFFICILE Comment/Plan: Patient to receive oral Flagyl therapy. She has been ordered yogurt twice daily and is encouraged to use the yogurt and the probiotics. (2) ORESTES (acute kidney injury) Acute N17.9 - ACUTE KIDNEY FAILURE, UNSPECIFIED Comment/Plan: Creatinine improved continue to monitor (3) Dehydration Acute E86.0 - DEHYDRATION Comment/Plan: Dehydrated due to nausea vomiting diarrhea. Also has acute kidney injury. Treating with gentle IV hydration. (4) Diarrhea Acute R19.7 - DIARRHEA, UNSPECIFIED Qualifiers: Diarrhea type: unspecified type Qualified Code(s): R19.7 - Diarrhea, unspecified Comment/Plan: Due to colitis, treating as above. Patient positive for to C diff. Continue Flagyl therapy. Discontinue Other antibiotics (5) Nausea & vomiting Acute R11.2 - NAUSEA WITH VOMITING, UNSPECIFIED Qualifiers: Vomiting type: unspecified Vomiting Intractability: unspecified Qualified Code(s): R11.2 - Nausea with vomiting, unspecified Comment/Plan: Zofran p.r.n.. (6) Sepsis Acute A41.9 - SEPSIS, UNSPECIFIED ORGANISM Qualifiers: Sepsis type: sepsis due to unspecified organism Qualified Code(s): A41.9 - Sepsis, unspecified organism Comment/Plan: Sepsis likely due to C diff colitis and severity of illness. Improving slowly continue to monitor. (7) Hypertension Acute I10 - ESSENTIAL (PRIMARY) HYPERTENSION Qualifiers: Hypertension type: essential hypertension Qualified Code(s): I10 - Essential (primary) hypertension Comment/Plan: Continue to hold blood pressure medications until patient's fluid volume status normalized (8) Left hemiparesis Inactive G81.94 - HEMIPLEGIA, UNSPECIFIED AFFECTING LEFT NONDOMINANT SIDE Comment/Plan: paresis/PLEGIA due to previous stroke. (9) Abdominal pain Acute R10.9 - UNSPECIFIED ABDOMINAL PAIN Qualifiers: Abdominal location: epigastric Qualified Code(s): R10.13 - Epigastric pain Comment/Plan: Likely due to C diff colitis monitor carefully. - Plan Oral Flagyl, probiotics, IV fluids, stop other antibiotics, yogurt twice daily. Disposition Plan: Hopefully return to previous living environment Case Care Discussed with: Patient, Nursing Staff Education/Counseling Given To: Patient, Family Member Education/Counseling Given Regarding: Diagnosis, Treatment, Prognosis, Follow Up , Disposition Plan Total Time: 45 minutes Critical Care: No Couseling Time (>50% in counseling/coordination): No
[2016-07-27] MEDS: MIRTAZAPINE 15 MG TAB PO SCH (20:14)
[2016-07-28] MEDS: METRONIDAZOLE 500 MG TAB PO SCH ×3 (05:13→22:11)
[2016-07-28 07:40] LABS: BLOOD UREA NITROGEN 17 MG/DL (7-17); CALCULATED OSMOLALITY 278 MOs/Kg (270-290); CHLORIDE 116 mEq/L (98-107); GLUCOSE 53 MG/DL (70-99); SODIUM LEVEL 145 mEq/L (137-146)
[2016-07-28] MEDS: RANITIDINE 150 MG TAB PO SCH (10:32)
[2016-07-28] MEDS: PROBIOTIC BLEND TAB PO SCH ×2 (10:32→18:22)
[2016-07-28] MEDS: ASPIRIN 325 MG TAB PO SCH (10:32)
[2016-07-28] MEDS: METOPROLOL (TOPROL-XL) 100 MG TAB PO SCH (10:32)
[2016-07-28] MEDS: FOLIC ACID 1 MG TAB PO SCH (10:33)
[2016-07-28] MEDS: BUSPIRONE 10 MG TAB PO SCH (10:33)
[2016-07-28] MEDS: VITAMINS, MULTIPLE CAP PO SCH (10:35)
--- NOTE | 2016-07-28 14:16 | GENMEDPROG ---
Chief Complaint: Diarrhea improving today. Notes Reviewed: Yes Events from last night noted and discussed with Clinical Staff Current Medication List: Reviewed Currently: Reports: Diarrhea, Nausea and Vomiting, Abdominal Pain, Fever/ Chills. Denies: Ambulating DVT Prophylaxis: Yes - Physical Examination Vital Signs and I&O: Last Vital Signs Temp 98.7 F 07/28/16 12:00 Pulse 100 07/28/16 11:48 Resp 19 07/28/16 10:59 BP 138/58 L 07/28/16 10:59 Pulse Ox 97 07/28/16 10:59 Oxygen Pulse Oxygen Saturation 97 O2 Device Room Air Oxygen Flow Rate Fraction of Inspired Oxygen ( FIO2) Intake & Output 07/25/16 07/26/16 07/27/16 07/28/16 23:59 23:59 23:59 23:59 Intake Total 1150 2649 120 Balance 1150 2649 120 Patient's weight 51.165 kg 51.573 kg 51.165 kg General: Alert, Oriented x3, No acute distress, Well appearing, Well nourished HEENT: Normal (Normocephalic, atraumatic;EOMI.Sclera white, Nares patent, without discharge or bleeding. No oropharyngeal lesions or erythema. Mucous membranes are dry.) Neck: Non-tender, Normal Trachea alignment, Normal inspection (No cervical lymphadenopathy. No supraclavicular lymphadenopathy.), No Masses palpable, Limited range of motion, Supple Lymphatics: Normal (No lymph node swelling or pain.) Respiratory: Normal - CTA Cardiovascular: Regular rate and rhythm (No bradycardia or tachycardia), Normal S1, No Gallops,Rubs/Murmurs, Normal S2, Good Pedal Pulses (DP pulses 2+ bilaterally) GI: Tenderness (Diffusely). negative: Rebound, Guarding Extremities/Musculoskeletal: Normal pulses (DP pulses 2+ bilaterally) Skin: Warm,Dry and Intact, No rashes, No significant lesion Neurological: Normal tone, Cranial nerves 3-12 NL ( 2-12 grossly intact.). negative: Strength at 5/5 X4 ext (Left hemiparesis from previous stroke) Psych/Mental Status: Appropriate, Normal Affect Lab/DI/Studies Reviewed: 07/28/16 06:25 07/28/16 06:25 Laboratory Results - last 24 hr 07/28/16 07/28/16 06:25 06:25 WBC 28.9 H RBC 3.01 L Hgb 9.0 L Hct 27.2 L MCV 90 MCH 29.9 MCHC 33.1 RDW 14.6 H Plt Count 513 H MPV 8.0 Sodium 145 Potassium 3.7 Chloride 116 H Carbon Dioxide 16 L Anion Gap 17 H BUN 17 Creatinine 0.90 Estimated GFR (MDRD) > 60 Glucose 53 L Calculated Osmolality 278 Calcium 8.0 L - Assessment (1) C. difficile colitis Acute A04.7 - ENTEROCOLITIS DUE TO CLOSTRIDIUM DIFFICILE Comment/Plan: Patient is getting oral Flagyl therapy. She has been ordered yogurt twice daily and is encouraged to use the yogurt and the probiotics. (2) Dehydration Acute E86.0 - DEHYDRATION Comment/Plan: Dehydrated due to nausea vomiting diarrhea. Also has acute kidney injury. Treating with gentle IV hydration. (3) ORESTES (acute kidney injury) Acute N17.9 - ACUTE KIDNEY FAILURE, UNSPECIFIED Comment/Plan: Creatinine improved continue to monitor (4) Abdominal pain Acute R10.9 - UNSPECIFIED ABDOMINAL PAIN Qualifiers: Abdominal location: epigastric Qualified Code(s): R10.13 - Epigastric pain Comment/Plan: Likely due to C diff colitis monitor carefully. (5) Hypertension Acute I10 - ESSENTIAL (PRIMARY) HYPERTENSION Qualifiers: Hypertension type: essential hypertension Qualified Code(s): I10 - Essential (primary) hypertension Comment/Plan: Continue to hold blood pressure medications until patient's fluid volume status normalized (6) Left hemiparesis Chronic G81.94 - HEMIPLEGIA, UNSPECIFIED AFFECTING LEFT NONDOMINANT SIDE Comment/Plan: paresis/PLEGIA due to previous stroke. Case Care Discussed with: Patient, Nursing Staff, Resource Management Education/Counseling Given To: Patient Education/Counseling Given Regarding: Diagnosis, Treatment Total Time: 39 min Critical Care: No Code: 68664 (12+)
[2016-07-28] MEDS: ENOXAPARIN 40 MG/0.4 ML PFS SQ SCH (18:22)
[2016-07-28] MEDS: NS 1,000 ML IV SCH (18:43)
[2016-07-28] MEDS: MIRTAZAPINE 15 MG TAB PO SCH (22:11)
[2016-07-29] MEDS: NS 1,000 ML IV SCH ×2 (01:02→05:16)
[2016-07-29 04:44] LABS: MPV 8.2 fL (7.4-10.4)
[2016-07-29 05:13] LABS: BLOOD UREA NITROGEN 13 MG/DL (7-17); CALCULATED OSMOLALITY 280 MOs/Kg (270-290); CHLORIDE 118 mEq/L (98-107); GLUCOSE 57 MG/DL (70-99); SODIUM LEVEL 147 mEq/L (137-146)
[2016-07-29] MEDS: METRONIDAZOLE 500 MG TAB PO SCH ×2 (05:16)
[2016-07-29] MEDS: VITAMINS, MULTIPLE CAP PO SCH (09:24)
[2016-07-29] MEDS: METOPROLOL (TOPROL-XL) 100 MG TAB PO SCH (09:25)
[2016-07-29] MEDS: RANITIDINE 150 MG TAB PO SCH (09:25)
[2016-07-29] MEDS: FOLIC ACID 1 MG TAB PO SCH (09:25)
[2016-07-29] MEDS: PROBIOTIC BLEND TAB PO SCH ×2 (09:25→17:34)
[2016-07-29] MEDS: ASPIRIN 325 MG TAB PO SCH (09:25)
[2016-07-29] MEDS: BUSPIRONE 10 MG TAB PO SCH ×2 (09:25→20:51)
--- NOTE | 2016-07-29 11:11 | GENMEDPROG ---
Chief Complaint: weak L shoulder pain diarrhea persists feeling worse more confusion Notes Reviewed: Yes Events from last night noted and discussed with Clinical Staff Current Medication List: Reviewed Currently: Reports: Diarrhea, Nausea and Vomiting, Abdominal Pain, Fever/ Chills. Denies: Ambulating DVT Prophylaxis: Yes - Physical Examination Vital Signs and I&O: Last Vital Signs Temp 97.9 F 07/29/16 08:00 Pulse 84 07/29/16 09:49 Resp 18 07/29/16 08:00 BP 152/71 07/29/16 08:00 Pulse Ox 96 07/29/16 08:00 Oxygen Pulse Oxygen Saturation 96 O2 Device Room Air Oxygen Flow Rate Fraction of Inspired Oxygen ( FIO2) Intake & Output 07/26/16 07/27/16 07/28/16 07/29/16 23:59 23:59 23:59 23:59 Intake Total 1150 2649 1533 1173 Balance 1150 2649 1533 1173 Patient's weight 51.165 kg 51.573 kg 51.165 kg 52.208 kg General: Alert, Oriented x3, No acute distress, Well appearing, Well nourished HEENT: Normal (Normocephalic, atraumatic;EOMI.Sclera white, Nares patent, without discharge or bleeding. No oropharyngeal lesions or erythema. Mucous membranes are dry.) Neck: Non-tender, Normal Trachea alignment, Normal inspection (No cervical lymphadenopathy. No supraclavicular lymphadenopathy.), No Masses palpable, Limited range of motion, Supple Lymphatics: Normal (No lymph node swelling or pain.) Respiratory: Normal - CTA Cardiovascular: Regular rate and rhythm (No bradycardia or tachycardia), Normal S1, No Gallops,Rubs/Murmurs, Normal S2, Good Pedal Pulses (DP pulses 2+ bilaterally) GI: Tenderness (Diffusely). negative: Rebound, Guarding Extremities/Musculoskeletal: Normal pulses (DP pulses 2+ bilaterally) Skin: Warm,Dry and Intact, No rashes, No significant lesion Neurological: Normal tone, Cranial nerves 3-12 NL ( 2-12 grossly intact.). negative: Strength at 5/5 X4 ext (Left hemiparesis from previous stroke) Psych/Mental Status: Confused, Somnolent Lab/DI/Studies Reviewed: 07/29/16 04:05 07/29/16 04:05 Laboratory Results - last 24 hr 07/29/16 07/29/16 04:05 04:05 WBC 29.5 H RBC 3.42 L Hgb 10.1 L D Hct 31.2 L MCV 91 MCH 29.4 MCHC 32.3 L RDW 14.8 H Plt Count 627 H MPV 8.2 Sodium 147 H Potassium 3.2 L Chloride 118 H Carbon Dioxide 16 L Anion Gap 16 BUN 13 Creatinine 0.80 Estimated GFR (MDRD) > 60 Glucose 57 L Calculated Osmolality 280 Calcium 8.0 L - Assessment (1) C. difficile colitis Acute A04.7 - ENTEROCOLITIS DUE TO CLOSTRIDIUM DIFFICILE Comment/Plan: Patient getting worse with increased confusion increased discomfort and general ill feeling with climbing white count. I feel the metronidazole as not helping so will switch to oral vancomycin 07/29/2016. I have informed daughter that her clinical status requires re-evaluation and changing antibiotics. (2) Leukocytosis Acute D72.829 - ELEVATED WHITE BLOOD CELL COUNT, UNSPECIFIED Qualifiers: Leukocytosis type: bandemia Qualified Code(s): D72.825 - Bandemia Comment/Plan: Patient feeling worse and white count is higher today more confusion is evident and concerned this is in indicated of worsening of her clinical status. Adjusting medications by stopping Flagyl and starting oral vancomycin. (3) Hypokalemia Acute E87.6 - HYPOKALEMIA Comment/Plan: Potassium needs replenishment. (4) Dehydration Acute E86.0 - DEHYDRATION Comment/Plan: Rehydrated. (5) ORESTES (acute kidney injury) Acute N17.9 - ACUTE KIDNEY FAILURE, UNSPECIFIED Comment/Plan: Creatinine improved continue to monitor (6) Abdominal pain Acute R10.9 - UNSPECIFIED ABDOMINAL PAIN Qualifiers: Abdominal location: epigastric Qualified Code(s): R10.13 - Epigastric pain Comment/Plan: Likely due to C diff colitis monitor carefully. (7) Hypertension Acute I10 - ESSENTIAL (PRIMARY) HYPERTENSION Qualifiers: Hypertension type: essential hypertension Qualified Code(s): I10 - Essential (primary) hypertension Comment/Plan: Continue to hold blood pressure medications until patient's fluid volume status normalized (8) Left hemiparesis Chronic G81.94 - HEMIPLEGIA, UNSPECIFIED AFFECTING LEFT NONDOMINANT SIDE Comment/Plan: paresis/PLEGIA due to previous stroke. Disposition Plan: Hopefully return to previous living environment Case Care Discussed with: Patient, Nursing Staff Education/Counseling Given To: Patient, Family Member Education/Counseling Given Regarding: Diagnosis Total Time: 38 min Critical Care: No Code: 70792 (12+)
--- NOTE | 2016-07-29 12:18 | DIRPT ---
CLINICAL DATA: Congestive heart failure EXAM: PORTABLE CHEST 1 VIEW COMPARISON: 07/26/2016 FINDINGS: Cardiomegaly again noted. There is chronic elevation of the right hemidiaphragm. Mild right basilar atelectasis. Central mild vascular congestion. No pulmonary edema. No segmental infiltrate. Surgical clips are noted in GE junction region. Mild mid thoracic dextroscoliosis. IMPRESSION: Chronic elevation of the right hemidiaphragm. Mild right basilar atelectasis. Mild vascular congestion without pulmonary edema. No segmental infiltrate. Electronically Signed By: Abhinav Hernandez M.D. On: 07/29/2016 12:15
[2016-07-29] MEDS: VANCOMYCIN PO SCH ×3 (12:20→23:06)
[2016-07-29] MEDS: POTASSIUM CHLORIDE 20 MEQ TAB PO SCH ×2 (12:21→14:12)
[2016-07-29] MEDS: ENOXAPARIN 40 MG/0.4 ML PFS SQ SCH (17:34)
[2016-07-29] MEDS: MIRTAZAPINE 15 MG TAB PO SCH ×2 (20:52)
[2016-07-30] MEDS: OXYCODONE HCL 5 MG TABLET PO PRN ×2 (00:46→22:17)
[2016-07-30] MEDS ORDERED: CHAPSTICK LIP BALM ONE (04:15)
[2016-07-30] MEDS: VANCOMYCIN PO SCH ×4 (05:43→22:14)
[2016-07-30 06:31] LABS: MPV 7.8 fL (7.4-10.4)
[2016-07-30 07:08] LABS: BLOOD UREA NITROGEN 9 MG/DL (7-17); CALCIUM 7.9 MG/DL (8.4-10.2); CALCULATED OSMOLALITY 277 MOs/Kg (270-290); CHLORIDE 119 mEq/L (98-107); GLUCOSE 74 MG/DL (70-99); SODIUM LEVEL 145 mEq/L (137-146)
[2016-07-30] MEDS: PROBIOTIC BLEND TAB PO SCH ×2 (09:06→16:28)
[2016-07-30] MEDS: VITAMINS, MULTIPLE CAP PO SCH (09:06)
[2016-07-30] MEDS: METOPROLOL (TOPROL-XL) 100 MG TAB PO SCH (09:06)
[2016-07-30] MEDS: RANITIDINE 150 MG TAB PO SCH (09:06)
[2016-07-30] MEDS: BUSPIRONE 10 MG TAB PO SCH ×2 (09:06→22:14)
[2016-07-30] MEDS: ASPIRIN 325 MG TAB PO SCH (09:06)
[2016-07-30] MEDS: FOLIC ACID 1 MG TAB PO SCH (09:07)
[2016-07-30] MEDS: [UNRECOGNIZED DRUG - OTHER] PO SCH (16:28)
[2016-07-30] MEDS: ENOXAPARIN 40 MG/0.4 ML PFS SQ SCH (17:30)
--- NOTE | 2016-07-30 21:26 | GENMEDPROG ---
Chief Complaint: Feeling better today more alert confused Notes Reviewed: Yes Events from last night noted and discussed with Clinical Staff Current Medication List: Reviewed Currently: Reports: Diarrhea, Nausea and Vomiting, Abdominal Pain, Fever/ Chills. Denies: Ambulating DVT Prophylaxis: Yes - Physical Examination Vital Signs and I&O: Last Vital Signs Temp 99.2 F 07/30/16 20:44 Pulse 79 07/30/16 20:44 Resp 20 07/30/16 20:44 BP 162/78 07/30/16 20:44 Pulse Ox 97 07/30/16 20:44 Oxygen Pulse Oxygen Saturation 97 O2 Device Room Air Oxygen Flow Rate Fraction of Inspired Oxygen ( FIO2) Intake & Output 07/27/16 07/28/16 07/29/16 07/30/16 23:59 23:59 23:59 23:59 Intake Total 2649 1533 1353 1296 Output Total 2 Balance 2649 1533 1353 1294 Patient's weight 51.573 kg 51.165 kg 52.208 kg 53.615 kg General: Alert, Oriented x3, No acute distress, Well appearing, Well nourished HEENT: Normal (Normocephalic, atraumatic;EOMI.Sclera white, Nares patent, without discharge or bleeding. No oropharyngeal lesions or erythema. Mucous membranes are dry.) Neck: Non-tender, Normal Trachea alignment, Normal inspection (No cervical lymphadenopathy. No supraclavicular lymphadenopathy.), No Masses palpable, Limited range of motion, Supple Lymphatics: Normal (No lymph node swelling or pain.) Respiratory: Normal - CTA Cardiovascular: Regular rate and rhythm (No bradycardia or tachycardia), Normal S1, No Gallops,Rubs/Murmurs, Normal S2, Good Pedal Pulses (DP pulses 2+ bilaterally) GI: Tenderness (Diffusely). negative: Rebound, Guarding Extremities/Musculoskeletal: Normal pulses (DP pulses 2+ bilaterally) Skin: Warm,Dry and Intact, No rashes, No significant lesion Neurological: Normal tone, Cranial nerves 3-12 NL ( 2-12 grossly intact.). negative: Strength at 5/5 X4 ext (Left hemiparesis from previous stroke) Psych/Mental Status: Confused, Somnolent Lab/DI/Studies Reviewed: 07/30/16 06:10 07/30/16 06:10 Laboratory Results - last 24 hr 07/30/16 07/30/16 06:10 06:10 WBC 18.8 H RBC 3.23 L Hgb 9.8 L Hct 29.1 L MCV 90 MCH 30.4 MCHC 33.7 RDW 14.9 H Plt Count 614 H MPV 7.8 Sodium 145 Potassium 3.9 Chloride 119 H Carbon Dioxide 18 L Anion Gap 12 BUN 9 Creatinine 0.80 Estimated GFR (MDRD) > 60 Glucose 74 Calculated Osmolality 277 Calcium 7.9 L - Assessment (1) C. difficile colitis Acute A04.7 - ENTEROCOLITIS DUE TO CLOSTRIDIUM DIFFICILE Comment/Plan: Confusion seems little bit better today and she is feeling better. Her white count has dropped to 18,000. The only difference is switching Flagyl to vancomycin p.o.. (2) Leukocytosis Acute D72.829 - ELEVATED WHITE BLOOD CELL COUNT, UNSPECIFIED Qualifiers: Leukocytosis type: bandemia Qualified Code(s): D72.825 - Bandemia Comment/Plan: Appears to be tolerating the oral vancomycin better. (3) Dehydration Acute E86.0 - DEHYDRATION Comment/Plan: Rehydrated. (4) ORESTES (acute kidney injury) Acute N17.9 - ACUTE KIDNEY FAILURE, UNSPECIFIED Comment/Plan: Creatinine improved continue to monitor (5) Abdominal pain Acute R10.9 - UNSPECIFIED ABDOMINAL PAIN Qualifiers: Abdominal location: epigastric Qualified Code(s): R10.13 - Epigastric pain Comment/Plan: Likely due to C diff colitis monitor carefully. (6) Hypertension Acute I10 - ESSENTIAL (PRIMARY) HYPERTENSION Qualifiers: Hypertension type: essential hypertension Qualified Code(s): I10 - Essential (primary) hypertension Comment/Plan: Continue to hold blood pressure medications until patient's fluid volume status normalized (7) Left hemiparesis Chronic G81.94 - HEMIPLEGIA, UNSPECIFIED AFFECTING LEFT NONDOMINANT SIDE Comment/Plan: paresis/PLEGIA due to previous stroke. (8) Hypokalemia Resolved E87.6 - HYPOKALEMIA Comment/Plan: Potassium needs replenishment. Disposition Plan: Hopefully return to previous living environment Case Care Discussed with: Patient, Nursing Staff, Resource Management Education/Counseling Given To: Patient, Family Member Education/Counseling Given Regarding: Diagnosis, Treatment Total Time: 39 min Critical Care: No Code: 49973 (12+)
[2016-07-30] MEDS: MIRTAZAPINE 15 MG TAB PO SCH (22:14)
[2016-07-31 04:39] LABS: MPV 8.2 fL (7.4-10.4)
[2016-07-31 04:48] LABS: BLOOD UREA NITROGEN 7 MG/DL (7-17); CALCIUM 7.6 MG/DL (8.4-10.2); CALCULATED OSMOLALITY 272 MOs/Kg (270-290); CHLORIDE 114 mEq/L (98-107); GLUCOSE 72 MG/DL (70-99); SODIUM LEVEL 143 mEq/L (137-146)
[2016-07-31] MEDS: VANCOMYCIN PO SCH ×4 (05:41→23:44)
--- NOTE | 2016-07-31 08:15 | GENMEDPROG ---
Chief Complaint: Sleepy weak but diarrhea has improved greatly Notes Reviewed: Yes Events from last night noted and discussed with Clinical Staff Current Medication List: Reviewed Currently: Reports: Diarrhea, Nausea and Vomiting, Abdominal Pain, Fever/ Chills. Denies: Ambulating DVT Prophylaxis: Yes - Physical Examination Vital Signs and I&O: Last Vital Signs Temp 99.1 F 07/31/16 06:21 Pulse 77 07/31/16 07:21 Resp 18 07/31/16 06:21 BP 150/88 07/31/16 06:21 Pulse Ox 95 07/31/16 06:21 Oxygen Pulse Oxygen Saturation 95 O2 Device Room Air Oxygen Flow Rate Fraction of Inspired Oxygen ( FIO2) Intake & Output 07/28/16 07/29/16 07/30/16 07/31/16 23:59 23:59 23:59 23:59 Intake Total 1533 1353 1296 Output Total 2 Balance 1533 1353 1294 Patient's weight 51.165 kg 52.208 kg 53.615 kg 54.023 kg General: Alert, Oriented x3, No acute distress, Well appearing, Well nourished HEENT: Normal (Normocephalic, atraumatic;EOMI.Sclera white, Nares patent, without discharge or bleeding. No oropharyngeal lesions or erythema. Mucous membranes are dry.) Neck: Non-tender, Normal Trachea alignment, Normal inspection (No cervical lymphadenopathy. No supraclavicular lymphadenopathy.), No Masses palpable, Limited range of motion, Supple Lymphatics: Normal (No lymph node swelling or pain.) Respiratory: Normal - CTA Cardiovascular: Regular rate and rhythm (No bradycardia or tachycardia), Normal S1, No Gallops,Rubs/Murmurs, Normal S2, Good Pedal Pulses (DP pulses 2+ bilaterally) GI: Tenderness (Diffusely). negative: Rebound, Guarding Extremities/Musculoskeletal: Normal pulses (DP pulses 2+ bilaterally) Skin: Warm,Dry and Intact, No rashes, No significant lesion Neurological: Normal tone, Cranial nerves 3-12 NL ( 2-12 grossly intact.). negative: Strength at 5/5 X4 ext (Left hemiparesis from previous stroke) Psych/Mental Status: Confused, Somnolent Lab/DI/Studies Reviewed: 07/31/16 03:12 07/31/16 03:12 Laboratory Results - last 24 hr 07/31/16 07/31/16 03:12 03:12 WBC 18.9 H RBC 3.38 L Hgb 10.3 L Hct 30.3 L MCV 90 MCH 30.4 MCHC 33.9 RDW 15.1 H Plt Count 689 H MPV 8.2 Sodium 143 Potassium 4.1 Chloride 114 H Carbon Dioxide 18 L Anion Gap 15 BUN 7 Creatinine 0.70 Estimated GFR (MDRD) > 60 Glucose 72 Calculated Osmolality 272 Calcium 7.6 L - Assessment (1) C. difficile colitis Acute A04.7 - ENTEROCOLITIS DUE TO CLOSTRIDIUM DIFFICILE Comment/Plan: Confusion continues to improve and she is feeling better. Her white count has dropped to 18,000. Switching to vancomycin from Flagyl has helped. (2) Leukocytosis Acute D72.829 - ELEVATED WHITE BLOOD CELL COUNT, UNSPECIFIED Qualifiers: Leukocytosis type: bandemia Qualified Code(s): D72.825 - Bandemia Comment/Plan: Appears to be tolerating the oral vancomycin better. (3) Abdominal pain Acute R10.9 - UNSPECIFIED ABDOMINAL PAIN Qualifiers: Abdominal location: epigastric Qualified Code(s): R10.13 - Epigastric pain Comment/Plan: Likely due to C diff colitis monitor carefully. (4) Hypertension Acute I10 - ESSENTIAL (PRIMARY) HYPERTENSION Qualifiers: Hypertension type: essential hypertension Qualified Code(s): I10 - Essential (primary) hypertension Comment/Plan: Continue to hold blood pressure medications until patient's fluid volume status normalized (5) Left hemiparesis Chronic G81.94 - HEMIPLEGIA, UNSPECIFIED AFFECTING LEFT NONDOMINANT SIDE Comment/Plan: paresis/PLEGIA due to previous stroke. (6) Hypokalemia Resolved E87.6 - HYPOKALEMIA Comment/Plan: Potassium needs replenishment. (7) Dehydration Resolved E86.0 - DEHYDRATION Comment/Plan: Rehydrated. (8) ORESTES (acute kidney injury) Resolved N17.9 - ACUTE KIDNEY FAILURE, UNSPECIFIED Comment/Plan: Creatinine improved continue to monitor Case Care Discussed with: Patient, Nursing Staff, Resource Management Education/Counseling Given To: Patient Education/Counseling Given Regarding: Diagnosis Total Time: 37 min Critical Care: No Code: 28193 (12+)
[2016-07-31] MEDS: ASPIRIN 325 MG TAB PO SCH (08:39)
[2016-07-31] MEDS: METOPROLOL (TOPROL-XL) 100 MG TAB PO SCH (08:40)
[2016-07-31] MEDS: BUSPIRONE 10 MG TAB PO SCH ×2 (08:40→19:40)
[2016-07-31] MEDS: [UNRECOGNIZED DRUG - OTHER] PO SCH ×3 (08:40→14:20)
[2016-07-31] MEDS: RANITIDINE 150 MG TAB PO SCH (08:40)
[2016-07-31] MEDS: Fluconazole 200 mg in NS 200 MG/100 ML ML IV SCH (10:51)
[2016-07-31] MEDS: VITAMINS, MULTIPLE CAP PO SCH (10:52)
[2016-07-31] MEDS: PROBIOTIC BLEND TAB PO SCH ×2 (10:52→18:06)
[2016-07-31] MEDS: FOLIC ACID 1 MG TAB PO SCH (10:52)
[2016-07-31] MEDS: ENOXAPARIN 40 MG/0.4 ML PFS SQ SCH (18:05)
[2016-07-31] MEDS: MIRTAZAPINE 15 MG TAB PO SCH (19:40)
[2016-07-31] MEDS: OXYCODONE HCL 5 MG TABLET PO PRN (19:40)
[2016-08-01] MEDS: VANCOMYCIN PO SCH ×4 (06:23→23:31)
[2016-08-01 07:57] LABS: BLOOD UREA NITROGEN 6 MG/DL (7-17); CALCIUM 7.8 MG/DL (8.4-10.2); CALCULATED OSMOLALITY 267 MOs/Kg (270-290); CHLORIDE 111 mEq/L (98-107); GLUCOSE 63 MG/DL (70-99); MPV 7.9 fL (7.4-10.4); SODIUM LEVEL 141 mEq/L (137-146)
[2016-08-01] MEDS: ASPIRIN 325 MG TAB PO SCH (12:06)
[2016-08-01] MEDS: [UNRECOGNIZED DRUG - OTHER] PO SCH ×2 (12:07→15:10)
[2016-08-01] MEDS: RANITIDINE 150 MG TAB PO SCH (12:07)
[2016-08-01] MEDS: BUSPIRONE 10 MG TAB PO SCH ×2 (12:07→21:20)
[2016-08-01] MEDS: Fluconazole 200 mg in NS 200 MG/100 ML ML IV SCH (12:07)
[2016-08-01] MEDS: PROBIOTIC BLEND TAB PO SCH ×2 (12:07→17:54)
[2016-08-01] MEDS: METOPROLOL (TOPROL-XL) 100 MG TAB PO SCH (12:07)
[2016-08-01] MEDS: FOLIC ACID 1 MG TAB PO SCH (12:08)
[2016-08-01] MEDS: VITAMINS, MULTIPLE CAP PO SCH (12:08)
--- NOTE | 2016-08-01 12:46 | GENMEDPROG ---
Chief Complaint: Feeling some better. Still with moderate abdominal pain Notes Reviewed: Yes Events from last night noted and discussed with Clinical Staff Current Medication List: Reviewed Currently: Reports: Diarrhea, Nausea and Vomiting, Abdominal Pain, Fever/ Chills. Denies: Ambulating DVT Prophylaxis: Yes - Physical Examination Vital Signs and I&O: Last Vital Signs Temp 98.5 F 08/01/16 06:00 Pulse 70 08/01/16 06:00 Resp 18 08/01/16 06:00 BP 152/60 08/01/16 06:00 Pulse Ox 97 08/01/16 06:00 Oxygen Pulse Oxygen Saturation 97 O2 Device Room Air Oxygen Flow Rate Fraction of Inspired Oxygen ( FIO2) Intake & Output 07/29/16 07/30/16 07/31/16 08/01/16 23:59 23:59 23:59 23:59 Intake Total 1353 1296 420 Output Total 2 Balance 1353 1294 420 Patient's weight 52.208 kg 53.615 kg 54.023 kg 75.568 kg General: Alert, Oriented x3, No acute distress, Well appearing, Well nourished HEENT: Normal (Normocephalic, atraumatic;EOMI.Sclera white, Nares patent, without discharge or bleeding. No oropharyngeal lesions or erythema. Mucous membranes are dry.) Neck: Non-tender, Normal Trachea alignment, Normal inspection (No cervical lymphadenopathy. No supraclavicular lymphadenopathy.), No Masses palpable, Limited range of motion, Supple Lymphatics: Normal (No lymph node swelling or pain.) Respiratory: Normal - CTA Cardiovascular: Regular rate and rhythm (No bradycardia or tachycardia), Normal S1, No Gallops,Rubs/Murmurs, Normal S2, Good Pedal Pulses (DP pulses 2+ bilaterally) GI: Soft, Tenderness (Diffusely). negative: Rebound, Guarding Extremities/Musculoskeletal: Normal pulses (DP pulses 2+ bilaterally), Tenderness. negative: Swelling, Edema Skin: Warm,Dry and Intact, No rashes, No significant lesion Neurological: Normal tone, Cranial nerves 3-12 NL ( 2-12 grossly intact.). negative: Strength at 5/5 X4 ext (Left hemiparesis from previous stroke) Psych/Mental Status: Confused, Somnolent Lab/DI/Studies Reviewed: Laboratory Results - last 24 hr 08/01/16 08/01/16 06:30 06:30 WBC 18.1 H RBC 3.34 L Hgb 10.2 L Hct 30.0 L MCV 90 MCH 30.5 MCHC 34.0 RDW 14.7 H Plt Count 593 H MPV 7.9 Sodium 141 Potassium 3.9 Chloride 111 H Carbon Dioxide 23 Anion Gap 11 BUN 6 L Creatinine 0.60 Estimated GFR (MDRD) > 60 Glucose 63 L Calculated Osmolality 267 L Calcium 7.8 L - Assessment (1) C. difficile colitis Acute A04.7 - ENTEROCOLITIS DUE TO CLOSTRIDIUM DIFFICILE Comment/Plan: More alert and interactive. Still mildly confused. White count remains mildly elevated overall she does appear to have improved. Continue supportive care and monitor. (2) Leukocytosis Acute D72.829 - ELEVATED WHITE BLOOD CELL COUNT, UNSPECIFIED Qualifiers: Leukocytosis type: bandemia Qualified Code(s): D72.825 - Bandemia Comment/Plan: Continue oral vancomycin to treat C diff. (3) ORESTES (acute kidney injury) Resolved N17.9 - ACUTE KIDNEY FAILURE, UNSPECIFIED Comment/Plan: Resolved. Continue to monitor as needed. (4) Hypokalemia Resolved E87.6 - HYPOKALEMIA Comment/Plan: Potassium needs replenishment. (5) Hypertension Acute I10 - ESSENTIAL (PRIMARY) HYPERTENSION Qualifiers: Hypertension type: essential hypertension Qualified Code(s): I10 - Essential (primary) hypertension Comment/Plan: Continue to hold blood pressure medications until patient's fluid volume status normalized (6) Left hemiparesis Chronic G81.94 - HEMIPLEGIA, UNSPECIFIED AFFECTING LEFT NONDOMINANT SIDE Comment/Plan: paresis/PLEGIA due to previous stroke. (7) Dehydration Resolved E86.0 - DEHYDRATION Comment/Plan: IV fluids and monitor. Case Care Discussed with: Patient, Nursing Staff, Physical Therapy, Resource Management, Paint Spray Inspector
[2016-08-01] MEDS: ENOXAPARIN 40 MG/0.4 ML PFS SQ SCH (17:55)
[2016-08-01] MEDS: MIRTAZAPINE 15 MG TAB PO SCH (21:20)
[2016-08-01] MEDS ORDERED: SECURA EXTRA PROTECTIVE CREAM TOP ONE (22:17)
[2016-08-02] MEDS: VANCOMYCIN PO SCH ×4 (05:18→23:11)
[2016-08-02 07:37] LABS: MPV 7.6 fL (7.4-10.4)
[2016-08-02 07:43] LABS: BLOOD UREA NITROGEN 5 MG/DL (7-17); CALCIUM 7.5 MG/DL (8.4-10.2); CALCULATED OSMOLALITY 263 MOs/Kg (270-290); CHLORIDE 110 mEq/L (98-107); GLUCOSE 69 MG/DL (70-99); SODIUM LEVEL 139 mEq/L (137-146)
[2016-08-02] MEDS: METOPROLOL (TOPROL-XL) 100 MG TAB PO SCH (09:25)
[2016-08-02] MEDS: RANITIDINE 150 MG TAB PO SCH (09:25)
[2016-08-02] MEDS: ASPIRIN 325 MG TAB PO SCH (09:25)
[2016-08-02] MEDS: BUSPIRONE 10 MG TAB PO SCH ×2 (09:25→21:13)
[2016-08-02] MEDS: [UNRECOGNIZED DRUG - OTHER] PO SCH ×2 (09:26→13:32)
[2016-08-02] MEDS: Fluconazole 200 mg in NS 200 MG/100 ML ML IV SCH (09:35)
[2016-08-02] MEDS: PROBIOTIC BLEND TAB PO SCH ×2 (11:47→17:29)
[2016-08-02] MEDS: VITAMINS, MULTIPLE CAP PO SCH (11:47)
[2016-08-02] MEDS: FOLIC ACID 1 MG TAB PO SCH (11:47)
[2016-08-02] MEDS ORDERED: NS 250 ML IV ONE (12:09)
--- NOTE | 2016-08-02 16:21 | GENMEDPROG ---
Chief Complaint: Steadily better. More alert interactive. Encourage activity and mobility. Notes Reviewed: Yes Events from last night noted and discussed with Clinical Staff Current Medication List: Reviewed Currently: Reports: SOB, Abdominal Pain. Denies: Cough, Wheezing, Diarrhea, Nausea and Vomiting, Ambulating DVT Prophylaxis: Yes - Physical Examination Vital Signs and I&O: Last Vital Signs Temp 98.4 F 08/02/16 14:00 Pulse 59 L 08/02/16 14:00 Resp 18 08/02/16 14:00 BP 149/71 08/02/16 14:00 Pulse Ox 97 08/02/16 14:00 Oxygen Pulse Oxygen Saturation 97 O2 Device Room Air Oxygen Flow Rate Fraction of Inspired Oxygen ( FIO2) Intake & Output 07/30/16 07/31/16 08/01/16 08/02/16 23:59 23:59 23:59 23:59 Intake Total 1296 420 690 250 Output Total 2 Balance 1294 420 690 250 Patient's weight 53.615 kg 54.023 kg 75.568 kg 51.369 kg General: Alert, Oriented x3, No acute distress, Well appearing, Well nourished HEENT: Normal (Normocephalic, atraumatic;EOMI.Sclera white, Nares patent, without discharge or bleeding. No oropharyngeal lesions or erythema. Mucous membranes are dry.), PERRLA, EOMI, Anicteric Sclera Neck: Non-tender, Normal Trachea alignment, Normal inspection (No cervical lymphadenopathy. No supraclavicular lymphadenopathy.), No Masses palpable, Limited range of motion, Supple Lymphatics: Normal (No lymph node swelling or pain.). negative: Adenopathy Respiratory: Normal - CTA. negative: Rhonchi, Wheezes Cardiovascular: Regular rate and rhythm (No bradycardia or tachycardia), Normal S1, No Gallops,Rubs/Murmurs, Normal S2, Good Pedal Pulses (DP pulses 2+ bilaterally) GI: Soft, Tenderness (Diffusely). negative: Rebound, Guarding Extremities/Musculoskeletal: Normal pulses (DP pulses 2+ bilaterally), Tenderness. negative: Swelling, Edema Skin: Warm,Dry and Intact, No rashes, No significant lesion Neurological: Normal tone, Cranial nerves 3-12 NL ( 2-12 grossly intact.). negative: Strength at 5/5 X4 ext (Left hemiparesis from previous stroke) Psych/Mental Status: Confused, Somnolent Lab/DI/Studies Reviewed: Laboratory Results - last 24 hr 08/02/16 08/02/16 06:20 06:20 WBC 14.2 H RBC 3.38 L Hgb 10.1 L Hct 30.3 L MCV 90 MCH 29.7 MCHC 33.2 RDW 15.0 H Plt Count 557 H MPV 7.6 Sodium 139 Potassium 3.7 Chloride 110 H Carbon Dioxide 22 Anion Gap 11 BUN 5 L Creatinine 0.50 L Estimated GFR (MDRD) > 60 Glucose 69 L Calculated Osmolality 263 L Calcium 7.5 L - Assessment (1) C. difficile colitis Acute A04.7 - ENTEROCOLITIS DUE TO CLOSTRIDIUM DIFFICILE Comment/Plan: Much more alert and interactive. Appears oriented today. Increase activity and ambulate. Likely home 1-2 days (2) Leukocytosis Acute D72.829 - ELEVATED WHITE BLOOD CELL COUNT, UNSPECIFIED Qualifiers: Leukocytosis type: bandemia Qualified Code(s): D72.825 - Bandemia Comment/Plan: Overall improving (3) ORESTES (acute kidney injury) Resolved N17.9 - ACUTE KIDNEY FAILURE, UNSPECIFIED Comment/Plan: Resolved. Continue to monitor as needed. (4) Hypokalemia Resolved E87.6 - HYPOKALEMIA Comment/Plan: Potassium needs replenishment. (5) Hypertension Acute I10 - ESSENTIAL (PRIMARY) HYPERTENSION Qualifiers: Hypertension type: essential hypertension Qualified Code(s): I10 - Essential (primary) hypertension Comment/Plan: Continue to hold blood pressure medications until patient's fluid volume status normalized (6) Left hemiparesis Chronic G81.94 - HEMIPLEGIA, UNSPECIFIED AFFECTING LEFT NONDOMINANT SIDE Comment/Plan: paresis/PLEGIA due to previous stroke. (7) Dehydration Resolved E86.0 - DEHYDRATION Comment/Plan: IV fluids and monitor. Case Care Discussed with: Patient, Resource Management, Respiratory Therapy
[2016-08-02] MEDS: ENOXAPARIN 40 MG/0.4 ML PFS SQ SCH (17:30)
[2016-08-02] MEDS: MIRTAZAPINE 15 MG TAB PO SCH (21:13)
[2016-08-03] MEDS: VANCOMYCIN PO SCH ×4 (06:08→22:58)
[2016-08-03 07:16] LABS: MPV 7.3 fL (7.4-10.4)
[2016-08-03 07:34] LABS: BLOOD UREA NITROGEN 6 MG/DL (7-17); CALCIUM 7.7 MG/DL (8.4-10.2); CALCULATED OSMOLALITY 267 MOs/Kg (270-290); CHLORIDE 109 mEq/L (98-107); GLUCOSE 70 MG/DL (70-99); SODIUM LEVEL 141 mEq/L (137-146)
[2016-08-03] MEDS: Fluconazole 200 mg in NS 200 MG/100 ML ML IV SCH (08:54)
[2016-08-03] MEDS: RANITIDINE 150 MG TAB PO SCH (08:54)
[2016-08-03] MEDS: [UNRECOGNIZED DRUG - OTHER] PO SCH ×2 (08:54→11:13)
[2016-08-03] MEDS: PROBIOTIC BLEND TAB PO SCH ×2 (08:54→17:21)
[2016-08-03] MEDS: ASPIRIN 325 MG TAB PO SCH (08:54)
[2016-08-03] MEDS: METOPROLOL (TOPROL-XL) 100 MG TAB PO SCH (08:54)
[2016-08-03] MEDS: BUSPIRONE 10 MG TAB PO SCH ×2 (08:54→20:10)
[2016-08-03] MEDS: VITAMINS, MULTIPLE CAP PO SCH (08:55)
[2016-08-03] MEDS: FOLIC ACID 1 MG TAB PO SCH (08:55)
[2016-08-03 08:58] LABS: SEG NEUTROPHIL 59 % (45-76)
--- NOTE | 2016-08-03 14:52 | GENMEDPROG ---
Chief Complaint: Slowly better. Denies pain at present. Notes Reviewed: Yes Events from last night noted and discussed with Clinical Staff Current Medication List: Reviewed Currently: Reports: SOB, Abdominal Pain. Denies: Cough, Wheezing, Diarrhea, Nausea and Vomiting, Ambulating DVT Prophylaxis: Yes - Physical Examination Vital Signs and I&O: Last Vital Signs Temp 98.2 F 08/03/16 14:00 Pulse 75 08/03/16 14:00 Resp 20 08/03/16 14:00 BP 169/73 08/03/16 14:00 Pulse Ox 97 08/03/16 14:00 Oxygen Pulse Oxygen Saturation 97 O2 Device Room Air Oxygen Flow Rate Fraction of Inspired Oxygen ( FIO2) Intake & Output 07/31/16 08/01/16 08/02/16 08/03/16 23:59 23:59 23:59 23:59 Intake Total 420 690 310 Balance 420 690 310 Patient's weight 54.023 kg 75.568 kg 51.369 kg 52.163 kg General: Alert, Oriented x3, No acute distress, Well appearing, Well nourished HEENT: Normal (Normocephalic, atraumatic;EOMI.Sclera white, Nares patent, without discharge or bleeding. No oropharyngeal lesions or erythema. Mucous membranes are dry.), PERRLA, EOMI, Anicteric Sclera Neck: Non-tender, Normal Trachea alignment, Normal inspection (No cervical lymphadenopathy. No supraclavicular lymphadenopathy.), No Masses palpable, Limited range of motion, Supple Lymphatics: Normal (No lymph node swelling or pain.). negative: Adenopathy Respiratory: Normal - CTA. negative: Rhonchi, Wheezes Cardiovascular: Regular rate and rhythm (No bradycardia or tachycardia), Normal S1, No Gallops,Rubs/Murmurs, Normal S2, Good Pedal Pulses (DP pulses 2+ bilaterally) GI: Soft, Tenderness (Diffusely). negative: Rebound, Guarding Extremities/Musculoskeletal: Normal pulses (DP pulses 2+ bilaterally), Tenderness. negative: Swelling, Edema Skin: Warm,Dry and Intact, No rashes, No significant lesion Neurological: Normal tone, Cranial nerves 3-12 NL ( 2-12 grossly intact.). negative: Strength at 5/5 X4 ext (Left hemiparesis from previous stroke) Psych/Mental Status: Confused, Somnolent Lab/DI/Studies Reviewed: Laboratory Results - last 24 hr 08/03/16 08/03/16 06:28 06:28 WBC 11.4 H RBC 3.33 L Hgb 9.8 L Hct 29.7 L MCV 89 MCH 29.5 MCHC 33.1 RDW 14.8 H Plt Count 534 H MPV 7.3 L Neut % (Auto) Cancelled Lymph % (Auto) Cancelled [place] % (Auto) Cancelled Eos % (Auto) Cancelled Baso % (Auto) Cancelled Absolute Neuts (auto) Cancelled Absolute Lymphs (auto) Cancelled Seg Neuts % (Manual) 59 Band Neutrophils % 4 Lymphocytes % (Manual) 27 Monocytes % (Manual) 4 Eosinophils % (Manual) 6 H Absolute Neutrophils 7.18 Absolute Lymphocytes 3.[address] T[address] Granulation Tr Platelet Estimate Inc RBC Morphology 1+ hypo Sodium 141 Potassium 3.5 Chloride 109 H Carbon Dioxide 25 Anion Gap 11 BUN 6 L Creatinine 0.60 Estimated GFR (MDRD) > 60 Glucose 70 Calculated Osmolality 267 L Calcium 7.7 L - Assessment (1) C. difficile colitis Acute A04.7 - ENTEROCOLITIS DUE TO CLOSTRIDIUM DIFFICILE Comment/Plan: Steadily better. More alert and oriented. Very interactive. Likely home tomorrow morning if continues to improve. Will follow up with stay well. (2) Leukocytosis Acute D72.829 - ELEVATED WHITE BLOOD CELL COUNT, UNSPECIFIED Qualifiers: Leukocytosis type: bandemia Qualified Code(s): D72.825 - Bandemia Comment/Plan: Overall much better. White count finally down to 11 (3) ORESTES (acute kidney injury) Resolved N17.9 - ACUTE KIDNEY FAILURE, UNSPECIFIED Comment/Plan: Resolved. Continue to monitor as needed. (4) Hypokalemia Resolved E87.6 - HYPOKALEMIA Comment/Plan: Potassium needs replenishment. (5) Hypertension Acute I10 - ESSENTIAL (PRIMARY) HYPERTENSION Qualifiers: Hypertension type: essential hypertension Qualified Code(s): I10 - Essential (primary) hypertension Comment/Plan: Continue to hold blood pressure medications until patient's fluid volume status normalized (6) Left hemiparesis Chronic G81.94 - HEMIPLEGIA, UNSPECIFIED AFFECTING LEFT NONDOMINANT SIDE Comment/Plan: paresis/PLEGIA due to previous stroke. (7) Dehydration Resolved E86.0 - DEHYDRATION Comment/Plan: IV fluids and monitor. Case Care Discussed with: Patient, Nursing Staff, Physical Therapy, Resource Management, Respiratory Therapy, Amalgamator
[2016-08-03] MEDS: ENOXAPARIN 40 MG/0.4 ML PFS SQ SCH (17:21)
[2016-08-03] MEDS: MIRTAZAPINE 15 MG TAB PO SCH (20:10)
[2016-08-03] MEDS: hydrALAZINE 20 MG/ML VIAL IV PRN (23:37)
[2016-08-04] MEDS ORDERED: SECURA EXTRA PROTECTIVE CREAM TOP ONE (04:21)
[2016-08-04] MEDS: VANCOMYCIN PO SCH ×4 (05:41→23:26)
[2016-08-04 07:41] LABS: BLOOD UREA NITROGEN 6 MG/DL (7-17); CALCIUM 7.7 MG/DL (8.4-10.2); CALCULATED OSMOLALITY 265 MOs/Kg (270-290); CHLORIDE 107 mEq/L (98-107); GLUCOSE 70 MG/DL (70-99); SODIUM LEVEL 140 mEq/L (137-146)
[2016-08-04 07:48] LABS: AUTOMATED BASOPHIL 0.9 % (0-2); AUTOMATED EOSINOPHIL 3.2 % (0-5); AUTOMATED LYMPH 20.4 % (17-44); AUTOMATED MONOCYTE 6.2 % (3-10); AUTOMATED NEUTROPHIL 69.3 % (45-76); MPV 7.7 fL (7.4-10.4)
[2016-08-04] MEDS: ASPIRIN 325 MG TAB PO SCH (08:49)
[2016-08-04] MEDS: VITAMINS, MULTIPLE CAP PO SCH (08:50)
[2016-08-04] MEDS: METOPROLOL (TOPROL-XL) 100 MG TAB PO SCH (08:50)
[2016-08-04] MEDS: PROBIOTIC BLEND TAB PO SCH ×2 (08:50→18:23)
[2016-08-04] MEDS: BUSPIRONE 10 MG TAB PO SCH ×2 (08:50→22:57)
[2016-08-04] MEDS: RANITIDINE 150 MG TAB PO SCH (08:50)
[2016-08-04] MEDS: FOLIC ACID 1 MG TAB PO SCH (08:50)
[2016-08-04] MEDS: Fluconazole 200 mg in NS 200 MG/100 ML ML IV SCH (08:50)
[2016-08-04] MEDS: [UNRECOGNIZED DRUG - OTHER] PO SCH ×2 (08:50→11:48)
--- NOTE | 2016-08-04 10:59 | GENMEDPROG ---
Chief Complaint: Diarrhea restarted overnight. She is having mild moderate abdominal pain. No nausea or vomiting. Notes Reviewed: Yes Events from last night noted and discussed with Clinical Staff Current Medication List: Reviewed Currently: Reports: SOB, Abdominal Pain. Denies: Cough, Wheezing, Diarrhea, Nausea and Vomiting, Ambulating DVT Prophylaxis: Yes - Physical Examination Vital Signs and I&O: Last Vital Signs Temp 98 F 08/04/16 05:32 Pulse 86 08/04/16 05:32 Resp 20 08/04/16 05:32 BP 162/75 08/04/16 05:32 Pulse Ox 96 08/04/16 05:32 Oxygen Pulse Oxygen Saturation 96 O2 Device Room Air Oxygen Flow Rate Fraction of Inspired Oxygen ( FIO2) Intake & Output 08/01/16 08/02/16 08/03/16 08/04/16 23:59 23:59 23:59 23:59 Intake Total 690 310 120 120 Balance 690 310 120 120 Patient's weight 75.568 kg 51.369 kg 52.163 kg 52.418 kg General: Alert, Oriented x3, No acute distress, Well appearing, Well nourished HEENT: Normal (Normocephalic, atraumatic;EOMI.Sclera white, Nares patent, without discharge or bleeding. No oropharyngeal lesions or erythema. Mucous membranes are dry.), PERRLA, EOMI, Anicteric Sclera Neck: Non-tender, Normal Trachea alignment, Normal inspection (No cervical lymphadenopathy. No supraclavicular lymphadenopathy.), No Masses palpable, Limited range of motion, Supple Lymphatics: Normal (No lymph node swelling or pain.). negative: Adenopathy Respiratory: Normal - CTA. negative: Rhonchi, Wheezes Cardiovascular: Regular rate and rhythm (No bradycardia or tachycardia), Normal S1, No Gallops,Rubs/Murmurs, Normal S2, Good Pedal Pulses (DP pulses 2+ bilaterally) GI: Soft, Tenderness (Diffusely). negative: Rebound, Guarding Extremities/Musculoskeletal: Normal pulses (DP pulses 2+ bilaterally), Tenderness. negative: Swelling, Edema Skin: Warm,Dry and Intact, No rashes, No significant lesion Neurological: Normal tone, Cranial nerves 3-12 NL ( 2-12 grossly intact.). negative: Strength at 5/5 X4 ext (Left hemiparesis from previous stroke) Psych/Mental Status: Confused, Somnolent Lab/DI/Studies Reviewed: Laboratory Results - last 24 hr 08/04/16 08/04/16 06:38 06:38 WBC 11.7 H RBC 3.53 L Hgb 10.4 L Hct 31.7 L MCV 90 MCH 29.5 MCHC 32.8 L RDW 14.8 H Plt Count 553 H MPV 7.7 Neut % (Auto) 69.3 Lymph % (Auto) 20.4 [place] % (Auto) 6.2 Eos % (Auto) 3.2 Baso % (Auto) 0.9 Absolute Neuts (auto) 8.07 Absolute Lymphs (auto) 2.34 Sodium 140 Potassium 3.4 L Chloride 107 Carbon Dioxide 27 Anion Gap 9 BUN 6 L Creatinine 0.60 Estimated GFR (MDRD) > 60 Glucose 70 Calculated Osmolality 265 L Calcium 7.7 L - Assessment (1) C. difficile colitis Acute A04.7 - ENTEROCOLITIS DUE TO CLOSTRIDIUM DIFFICILE Comment/Plan: Had been doing better. However diarrhea restarted overnight. She remains very weak and has ambulated little. Continue current care and monitor. Increase activity and ambulate. (2) Leukocytosis Acute D72.829 - ELEVATED WHITE BLOOD CELL COUNT, UNSPECIFIED Qualifiers: Leukocytosis type: bandemia Qualified Code(s): D72.825 - Bandemia Comment/Plan: Overall much better. White count finally down to 11 (3) ORESTES (acute kidney injury) Resolved N17.9 - ACUTE KIDNEY FAILURE, UNSPECIFIED Comment/Plan: Resolved. Continue to monitor as needed. (4) Hypokalemia Resolved E87.6 - HYPOKALEMIA Comment/Plan: Potassium needs replenishment. (5) Hypertension Acute I10 - ESSENTIAL (PRIMARY) HYPERTENSION Qualifiers: Hypertension type: essential hypertension Qualified Code(s): I10 - Essential (primary) hypertension Comment/Plan: Continue to hold blood pressure medications until patient's fluid volume status normalized (6) Left hemiparesis Chronic G81.94 - HEMIPLEGIA, UNSPECIFIED AFFECTING LEFT NONDOMINANT SIDE Comment/Plan: paresis/PLEGIA due to previous stroke. (7) Dehydration Resolved E86.0 - DEHYDRATION Comment/Plan: IV fluids and monitor. Case Care Discussed with: Patient, Nursing Staff, Physical Therapy, Resource Management, Bonderite Operator
[2016-08-04] MEDS: ENOXAPARIN 40 MG/0.4 ML PFS SQ SCH (18:22)
[2016-08-04] MEDS: MIRTAZAPINE 15 MG TAB PO SCH (22:55)
[2016-08-04] MEDS: OXYCODONE HCL 5 MG TABLET PO PRN (23:25)
[2016-08-05 06:01] VITALS: BMI 21.9
[2016-08-05] MEDS: VANCOMYCIN PO SCH ×4 (06:40→23:39)
[2016-08-05 07:11] LABS: AUTOMATED EOSINOPHIL 4.5 % (0-5); AUTOMATED LYMPH 27.2 % (17-44); AUTOMATED MONOCYTE 6.8 % (3-10); AUTOMATED NEUTROPHIL 60.5 % (45-76); MPV 7.4 fL (7.4-10.4)
[2016-08-05 07:28] LABS: BLOOD UREA NITROGEN 10 MG/DL (7-17); CALCULATED OSMOLALITY 270 MOs/Kg (270-290); CHLORIDE 109 mEq/L (98-107); GLUCOSE 67 MG/DL (70-99); SODIUM LEVEL 142 mEq/L (137-146)
[2016-08-05] MEDS: ASPIRIN 325 MG TAB PO SCH (08:44)
[2016-08-05] MEDS: METOPROLOL (TOPROL-XL) 100 MG TAB PO SCH (08:44)
[2016-08-05] MEDS: RANITIDINE 150 MG TAB PO SCH (08:44)
[2016-08-05] MEDS: BUSPIRONE 10 MG TAB PO SCH ×2 (08:46→20:33)
[2016-08-05] MEDS: Fluconazole 200 mg in NS 200 MG/100 ML ML IV SCH (08:46)
[2016-08-05] MEDS ORDERED: ERGOCALCIFEROL (VITAMIN D2) 50000 UNITS CAP PO SCH (09:00)
[2016-08-05] MEDS ORDERED: Medication Special Instructions SCH (11:00)
[2016-08-05] MEDS: VITAMINS, MULTIPLE CAP PO SCH (11:58)
[2016-08-05] MEDS: PROBIOTIC BLEND TAB PO SCH ×2 (11:58→17:16)
[2016-08-05] MEDS: FOLIC ACID 1 MG TAB PO SCH (11:59)
[2016-08-05] MEDS: ENOXAPARIN 40 MG/0.4 ML PFS SQ SCH (17:17)
--- NOTE | 2016-08-05 18:15 | GENMEDPROG ---
Chief Complaint: FEELING MUCH BETTER NO MORE DIARRHEA Notes Reviewed: Yes Events from last night noted and discussed with Clinical Staff Current Medication List: Reviewed Currently: Reports: SOB, Abdominal Pain. Denies: Cough, Wheezing, Diarrhea, Nausea and Vomiting, Ambulating DVT Prophylaxis: Yes - Physical Examination Vital Signs and I&O: Last Vital Signs Temp 98.1 F 08/05/16 14:00 Pulse 65 08/05/16 14:00 Resp 18 08/05/16 14:00 BP 157/71 08/05/16 14:00 Pulse Ox 97 08/05/16 14:00 Oxygen Pulse Oxygen Saturation 97 O2 Device Room Air Oxygen Flow Rate Fraction of Inspired Oxygen ( FIO2) Intake & Output 08/02/16 08/03/16 08/04/16 08/05/16 23:59 23:59 23:59 23:59 Intake Total 310 120 827 638 Balance 310 120 827 638 Patient's weight 51.369 kg 52.163 kg 52.418 kg 51.057 kg General: Alert, Oriented x3, No acute distress, Well appearing, Well nourished HEENT: Normal (Normocephalic, atraumatic;EOMI.Sclera white, Nares patent, without discharge or bleeding. No oropharyngeal lesions or erythema. Mucous membranes are dry.), PERRLA, EOMI, Anicteric Sclera Neck: Non-tender, Normal Trachea alignment, Normal inspection (No cervical lymphadenopathy. No supraclavicular lymphadenopathy.), No Masses palpable, Limited range of motion, Supple Lymphatics: Normal (No lymph node swelling or pain.). negative: Adenopathy Respiratory: Normal - CTA. negative: Rhonchi, Wheezes Cardiovascular: Regular rate and rhythm (No bradycardia or tachycardia), Normal S1, No Gallops,Rubs/Murmurs, Normal S2, Good Pedal Pulses (DP pulses 2+ bilaterally) GI: Soft, Tenderness (Diffusely). negative: Rebound, Guarding Extremities/Musculoskeletal: Normal pulses (DP pulses 2+ bilaterally), Tenderness. negative: Swelling, Edema Skin: Warm,Dry and Intact, No rashes, No significant lesion Neurological: Normal tone, Cranial nerves 3-12 NL ( 2-12 grossly intact.). negative: Strength at 5/5 X4 ext (Left hemiparesis from previous stroke) Psych/Mental Status: Confused, Somnolent Lab/DI/Studies Reviewed: 08/05/16 06:29 08/05/16 06:29 Laboratory Results - last 24 hr 08/05/16 08/05/16 06:29 06:29 WBC 10.1 RBC 3.29 L Hgb 9.9 L Hct 29.6 L MCV 90 MCH 30.3 MCHC 33.6 RDW 14.9 H Plt Count 514 H MPV 7.4 Neut % (Auto) 60.5 Lymph % (Auto) 27.2 [place] % (Auto) 6.8 Eos % (Auto) 4.5 Baso % (Auto) 1.0 Absolute Neuts (auto) 6.06 Absolute Lymphs (auto) 2.73 Sodium 142 Potassium 3.6 Chloride 109 H Carbon Dioxide 26 Anion Gap 11 BUN 10 Creatinine 0.70 Estimated GFR (MDRD) > 60 Glucose 67 L Calculated Osmolality 270 Calcium 8.0 L - Assessment (1) C. difficile colitis Acute A04.7 - ENTEROCOLITIS DUE TO CLOSTRIDIUM DIFFICILE Comment/Plan: No more diarrhea and white count is down to normal with no left shift. (2) Leukocytosis Acute D72.829 - ELEVATED WHITE BLOOD CELL COUNT, UNSPECIFIED Qualifiers: Leukocytosis type: bandemia Qualified Code(s): D72.825 - Bandemia Comment/Plan: Overall much better. White count finally down to 10k. (3) Abdominal pain Acute R10.9 - UNSPECIFIED ABDOMINAL PAIN Qualifiers: Abdominal location: epigastric Qualified Code(s): R10.13 - Epigastric pain Comment/Plan: due to C diff colitis monitor carefully. (4) Hypertension Acute I10 - ESSENTIAL (PRIMARY) HYPERTENSION Qualifiers: Hypertension type: essential hypertension Qualified Code(s): I10 - Essential (primary) hypertension Comment/Plan: Toprol is being tolerated. Continue monitoring blood pressure. (5) Left hemiparesis Chronic G81.94 - HEMIPLEGIA, UNSPECIFIED AFFECTING LEFT NONDOMINANT SIDE Comment/Plan: paresis/PLEGIA due to previous stroke. (6) Hypokalemia Resolved E87.6 - HYPOKALEMIA Comment/Plan: Potassium needs replenishment. (7) Dehydration Resolved E86.0 - DEHYDRATION Comment/Plan: Rehydrated. (8) ORESTES (acute kidney injury) Resolved N17.9 - ACUTE KIDNEY FAILURE, UNSPECIFIED Comment/Plan: Resolved. Continue to monitor as needed. Disposition Plan: Hopefully return to previous living environment IN AM STAY WELL Case Care Discussed with: Patient, Nursing Staff, Resource Management Education/Counseling Given To: Patient Education/Counseling Given Regarding: Diagnosis Total Time: 38 MIN Critical Care: No Code: 80041 (12+)
[2016-08-05] MEDS: MIRTAZAPINE 15 MG TAB PO SCH (20:33)
[2016-08-06] MEDS: VANCOMYCIN PO SCH ×2 (05:39→11:49)
[2016-08-06] MEDS: hydrALAZINE 20 MG/ML VIAL IV PRN (05:42)
[2016-08-06 07:07] LABS: MPV 7.5 fL (7.4-10.4)
[2016-08-06 07:17] LABS: BLOOD UREA NITROGEN 10 MG/DL (7-17); CALCIUM 8.3 MG/DL (8.4-10.2); CALCULATED OSMOLALITY 267 MOs/Kg (270-290); CHLORIDE 106 mEq/L (98-107); GLUCOSE 85 MG/DL (70-99); SODIUM LEVEL 140 mEq/L (137-146)
[2016-08-06] MEDS: Fluconazole 200 mg in NS 200 MG/100 ML ML IV SCH (09:58)
[2016-08-06] MEDS: RANITIDINE 150 MG TAB PO SCH (09:58)
[2016-08-06] MEDS: BUSPIRONE 10 MG TAB PO SCH (09:58)
[2016-08-06] MEDS: METOPROLOL (TOPROL-XL) 100 MG TAB PO SCH (09:58)
[2016-08-06] MEDS: ASPIRIN 325 MG TAB PO SCH (09:58)
--- NOTE | 2016-08-06 11:30 | PCM.DCS92 ---
- Final/Secondary Discharge Diagnosis (1) C. difficile colitis Acute A04.7 - ENTEROCOLITIS DUE TO CLOSTRIDIUM DIFFICILE Present on Admission: Yes Comment: No more diarrhea and white count is down to normal with no left shift. (2) Leukocytosis Acute D72.829 - ELEVATED WHITE BLOOD CELL COUNT, UNSPECIFIED Present on Admission: Yes bandemia D72.825 - Bandemia Comment: Overall much better. (3) Abdominal pain Acute R10.9 - UNSPECIFIED ABDOMINAL PAIN Present on Admission: Yes epigastric R10.13 - Epigastric pain Comment: due to C diff colitis monitor carefully. (4) Hypertension Acute I10 - ESSENTIAL (PRIMARY) HYPERTENSION essential hypertension I10 - Essential (primary) hypertension Comment: Toprol is being tolerated. Continue monitoring blood pressure. (5) Left hemiparesis Chronic G81.94 - HEMIPLEGIA, UNSPECIFIED AFFECTING LEFT NONDOMINANT SIDE Present on Admission: Yes Comment: paresis/PLEGIA due to previous stroke. (6) Hypokalemia Resolved E87.6 - HYPOKALEMIA Present on Admission: Yes Comment: Potassium needs replenishment. (7) Dehydration Resolved E86.0 - DEHYDRATION Present on Admission: Yes Comment: Rehydrated. (8) ORESTES (acute kidney injury) Resolved N17.9 - ACUTE KIDNEY FAILURE, UNSPECIFIED Present on Admission: Yes Comment: Resolved. Continue to monitor as needed. Discharge Disposition: Retirement Facility Discharge Condition: Improved Fuctional Discharge Status: Wheelchair Assistance Physician Follow up/Referrals: Antonia Ramirez [employer]PERATOR [Primary Care Provider] - One Week New Prescriptions: Oxycodone Immediate Release [Oxycodone Immediate Release (OxyIR)] 5 mg PO Q4H PRN #20 tablet PRN Reason: Moderate To Severe Pain Probiotic Blend [Ivonne Q] 1 tab PO BIDLS #60 tablet Vancomycin HCl [Vancomycin] 125 mg PO Q6H #40 cap Discharge Home Medication List Aspirin 325 mg PO DAILY 11/12/15 [History Confirmed 07/26/16 Last Taken 07/25/16 ] Buspirone HCl [Buspar] 10 mg PO BID 11/12/15 [History Confirmed 07/26/16 Last Taken 07/25/16] Folic Acid 1 mg PO DAILY 11/12/15 [History Confirmed 07/26/16 Last Taken ] Baclofen 5 mg PO TID PRN 07/16/16 [History Confirmed 07/26/16 Last Taken ] CYANOCOBALAMIN (Vitamin B-12) [Vitamin B-12 (cyanocobalamin)] 1,000 mcg IM QMONTH 07/16/16 [History Confirmed 07/26/16 Last Taken 3 Weeks Ago] Fluticasone Propionate [Flonase] 1 spray DIANA DAILY PRN 07/16/16 [History Confirmed 07/26/16 Last Taken 07/25/16] Hydrocodone Bit/Acetaminophen [[place] 5-325 Tablet] 1 tab PO Q6H PRN MDD 3000MG OF TYLENOL 07/16/16 [History Confirmed 07/26/16 Last Taken 07/25/16] Loperamide HCl [Loperamide] 2 mg PO Q4H PRN 07/16/16 [History Confirmed Last Taken 07/26/16] Mirtazapine [Remeron] 7.5 mg PO HS 07/16/16 [History Confirmed 07/26/16 Last Taken 07/25/16] Multivitamin [Multiple Vitamins] 1 tab PO DAILY 07/16/16 [History Confirmed 09/10 Last Taken 07/25/16] Ondansetron [Zofran Odt] 4 - 8 mg PO BID PRN 07/16/16 [History Confirmed Last Taken 07/26/16] Ranitidine [Zantac] 150 mg PO DAILY 07/16/16 [History Confirmed 07/26/16 Last Taken 07/25/16] Metoprolol Succinate (XL) [Toprol Xl] 100 mg PO DAILY #90 tablet 07/21/16 [Rx Confirmed 07/26/16 Last Taken 07/25/16] Cholecalciferol (Vitamin D3) [Vitamin D3] 50,000 unit PO QMONTH 07/26/16 [ History Confirmed 07/26/16 Last Taken 3 Weeks Ago] Losartan Potassium [Cozaar] 50 mg PO DAILY 07/26/16 [History Confirmed 07/26/16 Last Taken 07/25/16] Promethazine HCl [Phenergan] 12.5 mg PO Q6-8H PRN 07/26/16 [History Confirmed Last Taken 07/25/16] See Comments 0 mg PO .SEE COMMENTS 07/26/16 [History Confirmed 07/26/16 Last Taken Unknown] Oxycodone Immediate Release [Oxycodone Immediate Release (OxyIR)] 5 mg PO Q4H PRN #20 tablet 08/06/16 [Rx Last Taken Unknown] Probiotic Blend [Ivonne Q] 1 tab PO BIDLS #60 tablet 08/06/16 [Rx Last Taken Unknown] Vancomycin HCl [Vancomycin] 125 mg PO Q6H #40 cap 08/06/16 [Rx Last Taken Unknown] 08/06/16 06:36 08/06/16 06:36 Laboratory Results - last 24 hr 08/06/16 08/06/16 06:36 06:36 WBC 16.2 H RBC 3.68 L Hgb 11.1 L D Hct 32.7 L MCV 89 MCH 30.1 MCHC 33.8 RDW 14.8 H Plt Count 581 H MPV 7.5 Sodium 140 Potassium 3.8 Chloride 106 Carbon Dioxide 26 Anion Gap 12 BUN 10 Creatinine 0.60 Estimated GFR (MDRD) > 60 Glucose 85 Calculated Osmolality 267 L Calcium 8.3 L O2 Device: Room Air Diet at Discharge: As Tolerated Activity: As Tolerated - DC Summary Notes Hospital Course Note:: Discharge summary on patient named ALBERTO GRANADO admitted to [facility] on 07/26/16 by Ta Cadena MD. Date of discharge is []. cc: [facility] Total Time: 40 min Code: 98187 (>30min.) - Physical Exam Vital Signs: Last Vital Signs Temp 98.6 F 08/06/16 05:05 Pulse 87 08/06/16 05:05 Resp 18 08/06/16 05:05 BP 164/71 08/06/16 06:40 Pulse Ox 95 08/06/16 05:05 Oxygen Pulse Oxygen Saturation 95 O2 Device Room Air Oxygen Flow Rate Fraction of Inspired Oxygen ( FIO2) Constitutional: Distress, Somnolent Oriented to: Time, Person, Place - HEENT Head: Normal (normocephalic,atraumatic, trachea midline) Eye: Normal (EOMI, Sclera white) Oropharynx: Normal (moist) ENT EAC: Normal (No oropharyngeal lesions or erythema. Mucous membranes are dry. ) TMJ: Normal Nose: No Symptoms Reported (without discharge or bleeding) - Respiratory/Cardiovascular Respiratory: Normal - CTA. negative: Rhonchi, Wheezes Cardiovascular: Normal (RRR , Normal S1, S2. No murmurs, rubs, or gallops. PMI non-displaced. Carotids: no carotid bruits. No bradycardia or tachycardia. DP pulses 2+ bilaterally.) - GI Auscultation: Normal (NABS) Palpation: Normal (Soft,No rebound or guarding, non distended) Tenderness: Diffuse, Moderate Murillo's Sign: Negative Rectal Exam: Deferred - Musculoskeletal Back: Normal (Non-Tender) Extremities: Normal (normal tone, no cyanosis or edema) - Integumentary Skin: Normal (Warm dry no rashes) Lymphatics: Normal (No lymph node swelling or pain.). negative: Adenopathy - Neurologic Memory Impaired: Normal Motor Function: Abnormal ( left-sided hemiparesis/plegia) Cerebellar: Normal Mood Description: Normal, Calm Thought: Coherent Perception: Normal
[2016-08-06] MEDS: VITAMINS, MULTIPLE CAP PO SCH (11:49)
[2016-08-06] MEDS: PROBIOTIC BLEND TAB PO SCH (11:49)
[2016-08-06] MEDS: FOLIC ACID 1 MG TAB PO SCH (11:49)
[2016-08-06 15:29] VITALS: BP 153/70; PULSE 65; TEMP 98.5
== END 2016-08-06 21:00 | DRG 871 ==
LOC: ED 15:36 → PCU 19:31 → MPS3 07-31 21:41
PROVIDERS: ADMIT Internal Medicine; ATTEND Internal Medicine
PROC: 039B3ZZ Drainage of Right Radial Artery, Percutaneous Approach (ICD-10-PCS; principal; 2016-07-26)
DX: A41.89 Other specified sepsis (principal); K85.90 Acute pancreatitis without necrosis or infection, unspecified; N17.9 Acute kidney failure, unspecified; A04.7 Enterocolitis due to Clostridium difficile; I69.354 Hemiplegia and hemiparesis following cerebral infarction affecting left non-dominant side; E86.0 Dehydration; E87.6 Hypokalemia; I10 Essential (primary) hypertension; Z87.11 Personal history of peptic ulcer disease; Z79.82 Long term (current) use of aspirin; Z79.899 Other long term (current) drug therapy; Z87.891 Personal history of nicotine dependence
CPT/HCPCS: 36415; 36600; 71010; 74177; 80048; 80053; 81001; 82272; 82550; 82803; 83605; 83630; 83690; 84484; 85007; 85025; 85027; 85610; 85730; 87040; 87045; 87046; 87086; 87427; 87449; 87493; 93005; 96361; 96365; 96366; 96372; 96375; 97162; 99285; A9698; G0237; J0360; J1170; J1450; J1650; J1956; J2405; J2543; J3370; J3480; J3490; J7060